=== PATIENT | female | born 1955 | race Caucasian/White ===

== ENCOUNTER → 2018-04-06 12:27 | Outpatient (CLI) | payer OTHER, SELFPAY | PROVIDERS: PCP Orthopaedic Surgery; Visit Provider Family Medicine | DX: Z12.31 Encounter for screening mammogram for malignant neoplasm of breast (principal); Z53.8 Procedure and treatment not carried out for other reasons ==

== ENCOUNTER → 2018-04-20 08:41 | Outpatient (CLI) | payer OTHER, SELFPAY ==
--- NOTE | 2018-04-20 | DI.US.S_ITS ---
ULTRASOUND OF LEFT BREAST: 04/20/2018 CLINICAL: Scaliness and discomfort left nipple. Per technologist, the patient describes a rash to the left nipple area that has been itchy, scaly, and lumpy without discharge. Patient states her nipple has occasionally turned a purple color. Comparison is made to exams dated: 04/20/2018 mammogram - [facility], 04/05/2017 mammogram, and 04/04/2016 mammogram - [facility]. Real-time and Doppler ultrasound of the left breast were performed. Alva scale images of the real-time examination were reviewed. Targeted ultrasound was performed in the region of the patient's reported focal symptoms in the left nipple and retroareolar region. No underlying breast mass or abnormality is identified. IMPRESSION: NEGATIVE Negative ultrasound evaluation of the left nipple and retroareolar region at site of the patient's reported focal symptoms. Recommend clinical follow-up for further evaluation and management of the patient's reported symptoms. A screening mammogram in one year is also recommended. These results and recommendations were discussed with the patient at the time of the exam by the steeping press operator. The patient was advised to monitor her breasts and to return for re-evaluation should anything grow or change. This exam was interpreted at Station ID: [id number]. Electronically Signed By: Casimiro Massey M.D. ecl/:04/20/2018 10:18:27 letter sent: Clinical Evaluation Ultrasound BI-RADS: 1 Negative
--- NOTE | 2018-04-20 | DI.MG.S_ITS ---
BILATERAL DIGITAL DIAGNOSTIC MAMMOGRAM 3D/2D: 04/20/2018 CLINICAL: Per technologist, the patient describes a rash to the left nipple area that has been itchy, scaly, and lumpy without discharge. Patient states her nipple has occasionally turned a purple color. Comparison is made to exams dated: 04/05/2017 mammogram and 04/04/2016 mammogram - [facility]. The tissue of both breasts is predominantly fatty. No significant masses, calcifications, or other findings are seen in either breast. No abnormality of the left nipple or retroareolar area on diagnostic mammography at the site of the patient's reported symptoms. IMPRESSION: INCOMPLETE: NEEDS ADDITIONAL IMAGING EVALUATION No abnormality of the left nipple or retroareolar area on diagnostic mammography at the site of the patient's reported symptoms. No convincing mammographic evidence of malignancy in either breast. Targeted diagnostic ultrasound recommended for further evaluation, which will be performed immediately following this exam. This exam was interpreted at Station ID: [id number]. NOTE: For mammograms, a report in lay terms will be sent to the patient. Approximately 15% of breast malignancies will not be visualized mammographically. In the management of a palpable breast mass, a negative mammogram must not discourage biopsy of a clinically suspicious lesion. Electronically Signed By: Casimiro Massey M.D. ecl/:04/20/2018 09:29:47 letter sent: Additional Imaging Needed ACR BI-RADS Category 0: Incomplete [id number]
== END ==
PROVIDERS: PCP Orthopaedic Surgery; Visit Provider Family Medicine
DX: R92.8 Other abnormal and inconclusive findings on diagnostic imaging of breast (principal); R21 Rash and other nonspecific skin eruption
CPT/HCPCS: 76642; 77066; G0279

== ENCOUNTER → 2020-04-24 10:24 | Outpatient (CLI) | payer OTHER, SELFPAY ==
--- NOTE | 2020-04-24 10:48 | DI.MG.S_ITS ---
Patient Name: HERNÁN ELLIS date: 1955 Sex: F Attending Physician: Abram Indications: Date: 04/24/2020 10:42 At the request of: YESSI ROBERT Procedure: MM screening mammo BI BILATERAL DIGITAL SCREENING MAMMOGRAM 3D/2D WITH CAD: 04/24/2020 CLINICAL: Routine screening. Family history of breast cancer. Comparison is made to exams dated: 04/20/2018 mammogram - [facility], 04/05/2017 mammogram, and 04/04/2016 mammogram - [facility]. There are scattered fibroglandular elements in both breasts. Current study was also evaluated with a Computer Aided Detection (CAD) system. No significant masses, calcifications, or other findings are seen in either breast. There has been no significant interval change. IMPRESSION: NEGATIVE There is no mammographic evidence of malignancy. A 1 year screening mammogram is recommended. This exam was interpreted at Station ID: [id number]. NOTE: For mammograms, a report in lay terms will be sent to the patient. Approximately 15% of breast malignancies will not be visualized mammographically. In the management of a palpable breast mass, a negative mammogram must not discourage biopsy of a clinically suspicious lesion. Electronically Signed By: Slick cunningham/diamante:04/24/2020 11:18:23 letter sent: Normal Exam ACR BI-RADS Category 1: Negative [id number]
== END ==
PROVIDERS: PCP Family Medicine; Referring Provider Family Medicine; Visit Provider Family Medicine
DX: Z12.31 Encounter for screening mammogram for malignant neoplasm of breast (principal); Z80.3 Family history of malignant neoplasm of breast
CPT/HCPCS: 77063; 77067

== ENCOUNTER → 2021-09-29 11:33 | Outpatient (CLI) | payer OTHER, SELFPAY ==
--- NOTE | 2021-09-29 | DI.US.S_ITS ---
PROCEDURE: US PERIPH VENOUS LOW EXTREM LT INDICATIONS: ACUTE DEEP VEIN THROMBOSIS LEFT LEG TECHNIQUE: Real-time imaging, as well as color and pulse Doppler interrogation, were performed of the lower extremity deep veins from the inguinal ligament to the popliteal fossa. COMPARISON: None. FINDINGS: The common femoral, femoral and popliteal veins are normally compressible, and free of intraluminal thrombus. Color and pulse Doppler demonstrate normal phasic intraluminal flow. There is normal augmentation response to distal compression maneuver. There is a focal fluid collection seen involving the medial aspect of the left knee that measures 2.6 x 2.6 x 3.3 cm. No abnormal vascularity can be seen. IMPRESSION: Negative for deep venous thrombosis. Focal nonvascular fluid collection seen along the medial aspect the left knee that measures up to 3.3 cm. Dictated by: Nir Palacios M.D. on 09/29/2021 at 11:52 Approved by: Nir Palacios M.D. on 09/29/2021 at 11:52
== END ==
PROVIDERS: PCP Family Medicine; Referring Provider Orthopaedic Surgery; Visit Provider Orthopaedic Surgery
DX: I82.442 Acute embolism and thrombosis of left tibial vein (principal)
CPT/HCPCS: 93971

== ENCOUNTER → 2021-10-27 15:45 | Outpatient (CLI) | payer OTHER, SELFPAY ==
--- NOTE | 2021-10-27 | DI.MRI.S_ITS ---
PROCEDURE: MR KNEE LT WO CON INDICATIONS: Tear of medial meniscus, current injury, left knee TECHNIQUE: Noncontrast sagittal PD fast spin echo and T2 fast spin echo with fat saturation, sagittal 3-D FLASH with fat saturation; coronal T1 spin echo and PD fast spin echo with fat saturation, and axial PD fast spin echo with fat saturation through the knee. COMPARISON: [facility], MR, MR KNEE LEFT WITHOUT CONTRAST, 07/08/2021, 9:00. FINDINGS: Image quality: Excellent. Menisci: Abnormal morphology of the posterior horn of the medial meniscus along the inferior articular surface, compatible with prior meniscectomy. There is horizontal tear of the free edge of the body of the lateral meniscus (series 11 image 21). The meniscal root ligaments appear intact. Cruciate ligaments: The anterior and posterior cruciate ligaments appear intact. Medial structures: The medial collateral ligament appears intact. The semimembranosus tendon insertions and meniscocapsular junction appear intact. Visualized portions of the pes anserinus tendons appear normal. No abnormal bursal fluid. Lateral structures: The lateral collateral ligament, long and short heads of the biceps femoris tendon appear intact. The popliteus tendon appears normal. Iliotibial band appears normal. Anterior structures: The quadriceps and patellar tendons appear intact. Patellar alignment is normal. No femoral trochlear dysplasia or ventral trochlear prominence. No edema in the infrapatellar fat pad. Bones and cartilage: No bone marrow contusions or fractures. There is moderate tricompartmental chondral malacia. Joint space: There is moderate sized knee joint effusion. Small Hartman's cyst. Normal appearing synovial plicae are incidentally noted. There is varicose veins in the left lower extremity. IMPRESSION: 1. Abnormal morphology of the posterior horn of the medial meniscus, compatible with prior meniscectomy. 2. Horizontal tear of the free edge of the body of the lateral meniscus. 3. Moderate knee joint effusion. 4. Tricompartmental chondral malacia. 5. Small Hartman's cyst. 6. Varicose veins in the left lower extremity. Dictated by: Milana Calero M.D. on 10/27/2021 at 17:25 Approved by: Milana Calero M.D. on 10/28/2021 at 12:02
== END ==
PROVIDERS: PCP Family Medicine; Referring Provider Orthopaedic Surgery; Visit Provider Orthopaedic Surgery
DX: S83.282A Other tear of lateral meniscus, current injury, left knee, initial encounter (principal); S83.242D Other tear of medial meniscus, current injury, left knee, subsequent encounter; M94.262 Chondromalacia, left knee; M25.462 Effusion, left knee; M71.22 Synovial cyst of popliteal space [Baker], left knee; I83.92 Asymptomatic varicose veins of left lower extremity
CPT/HCPCS: 73721

== ENCOUNTER → 2022-02-01 08:57 | Outpatient (CLI) | payer OTHER, SELFPAY ==
--- NOTE | 2022-02-01 09:01 | DI.NM.S_ITS ---
PROCEDURE: MA BONE SCAN WHOLE BODY RADIOPHARMACEUTICAL: 19.5 mCi Tc-99m MDP IV. INDICATIONS: Unilateral primary osteoarthritis, left knee TECHNIQUE: Delayed whole-body scintigrams were obtained approximately 3-4 hours after intravenous injection of radiotracer. Anterior and posterior views were acquired from vertex to feet. Additional left and right oblique views of the knees were obtained. COMPARISON: [facility], MA, BONE SCAN WHOLE BODY, 09/14/2015, 13:08. [facility], MR, MR KNEE LT WO CON, 10/27/2021, 16:20. [facility], CR, XR KNEE 4+ VIEWS LEFT, 12/01/2021, 8:14. FINDINGS: There is increased periarticular activity in knees bilaterally, left greater than right, compatible with degenerative/arthritic changes. Degenerative/arthritic changes are also seen in multiple other peripheral joints. No lesions are identified in skull, sternum, clavicles, scapulae, ribs, bony pelvis, and visualized shafts of the long bones. There are foci of increased uptake in cervical, thoracic and lumbar spine with distribution indistinguishable from degenerative disc and facet disease. IMPRESSION: 1. Foci of increased uptake in multiple peripheral joints compatible with degenerative/arthritic changes. Dictated by: Milana Calero M.D. on 02/01/2022 at 14:19 Approved by: Milana Calero M.D. on 02/01/2022 at 14:23
== END ==
PROVIDERS: PCP Family Medicine; Referring Provider Orthopaedic Surgery; Visit Provider Orthopaedic Surgery
DX: M17.12 Unilateral primary osteoarthritis, left knee (principal)
CPT/HCPCS: 78306; A9503

== ENCOUNTER → 2022-04-07 10:27 | Outpatient (CLI) | payer OTHER, SELFPAY ==
[2022-04-07 12:18] LABS: Add Manual Diff / Slide Review NO; Basophils Absolute Auto 0 /uL (0-100); Basophils Percent Auto 0.4 % (0-2); Eosinophils Absolute Auto 100 /uL (0-450); Eosinophils Percent Auto 2.3 % (2-4); Hematocrit 38.7 % (36-46); Hemoglobin 13.7 g/dL (12.0-16.0); Lymphocytes Absolute Auto 1500 /uL (1100-4500); Lymphocytes Percent Auto 25.3 % (25-40); Mean Corpuscular HGB Conc 35.5 % (30-36); Mean Corpuscular Hemoglobin 29.8 PG (26-34); Mean Corpuscular Volume 83.9 fL (80-100); Monocytes Absolute Auto 500 /uL (0-900); Monocytes Percent Auto 8.8 % (3-14); Neutrophils Absolute Auto 3800 /uL (1500-7000); Neutrophils Percent Auto 63.2 % (50-75); Platelet Count 195 X10^3/uL (150-400); Red Blood Cell Count 4.62 X10^6/uL (4.0-5.2); Red Cell Distribution Width 13.4 % (11.6-14.8)
[2022-04-07 12:33] LABS: Appearance Urine UA CLEAR; Bilirubin Urine UA NEGATIVE (NEGATIVE); Color Urine UA YELLOW; Glucose Urine UA NEGATIVE (Negative); Ketones Urine UA NEGATIVE (NEGATIVE); Leukocyte Esterase Urine UA NEGATIVE (NEGATIVE); Nitrite Urine UA NEGATIVE (Negative); Occult Blood Urine UA NEGATIVE (Negative); Protein Urine UA NEGATIVE (Negative); Specific Gravity Urine UA <=1.005 (1.000-1.035); Urobilinogen Urine UA 0.2 E.U./dL (0.2)
[2022-04-07 12:49] LABS: Bacteria Urine None Seen; Culture Indicated Urine Cult Not Indicated; RBC Urine None Seen (0-5/HPF); Urine Comments Microscopic Normal; WBC Urine None Seen (0-5/HPF)
[2022-04-07 12:51] LABS: BUN Creatinine Ratio 27.7 (6-22); Blood Urea Nitrogen 18 mg/dL (7-17); Calcium 9.4 mg/dL (8.4-10.2); Carbon Dioxide 31 mmol/L (22-32); Chloride 105 mmol/L (98-107); Estimated Glomerular Filt Rate > 60 mL/min (>60); Glucose 93 mg/dL (80-110); HEMOLYSIS < 15 (0-50); Sodium 142 mmol/L (137-145)
== END ==
PROVIDERS: PCP Family Medicine; Referring Provider Orthopaedic Surgery; Visit Provider Orthopaedic Surgery
DX: Z01.818 Encounter for other preprocedural examination (principal); Z01.812 Encounter for preprocedural laboratory examination; R73.9 Hyperglycemia, unspecified; N39.0 Urinary tract infection, site not specified
CPT/HCPCS: 36415; 80048; 81001; 83036; 85025; 93005; 93010

== ENCOUNTER → 2022-04-18 09:51 | Outpatient (CLI) | payer OTHER, SELFPAY ==
[2022-04-18 11:07] LABS: COVID19 -Nasal RAPID Negative (Negative)
== END ==
PROVIDERS: PCP Family Medicine; Referring Provider Orthopaedic Surgery; Visit Provider Orthopaedic Surgery
DX: Z20.822 Contact with and (suspected) exposure to COVID-19 (principal)
CPT/HCPCS: 87635; C9803

== ENCOUNTER 2022-04-19 12:01 | Day surgery (SDC) | payer OTHER, SELFPAY ==
[2022-04-12 08:59] VITALS: BMI 28.0
[2022-04-19] VITALS (18 sets, daily range): BP systolic 126–150; BP diastolic 54–67; PULSE 56–79; RESP 11–18; TEMP 36–36.9; O2SAT 92–100; BMI 28.0
--- NOTE | 2022-04-19 09:17 | DI.RAD.S_ITS ---
PROCEDURE: XR KNEE LT 1TO2V INDICATIONS: TKA TECHNIQUE: 2 view(s) of the knee acquired. COMPARISON: [facility] [place], CR, XR KNEE 4+ VIEWS LEFT, 12/01/2021, 8:14. FINDINGS: Bones: Patient is status post knee joint arthroplasty. Hardware components are in expected positions. Visualized bony structures are intact. Soft tissues: Overlying postoperative changes are noted. IMPRESSION: Expected immediate postoperative appearance of left TKA. Dictated by: David Wade Darci Interpreted: Arnel Fernandez MD on 04/19/2022 at 17:05 Transcribed by: ОЛЕГ on 04/19/2022 at 17:05 Approved by: Arnel Fernandez M.D. on 04/19/2022 at 21:03
[2022-04-19] MEDS: VANCOMYCIN 1,000 MG/200 ML PIGGYBACK 200 MG IV (12:54)
[2022-04-19] MEDS: CELECOXIB 200 MG CAPSULE PO (12:55)
[2022-04-19] MEDS: ACETAMINOPHEN 325 MG TABLET 975 MG PO (12:55)
--- NOTE | 2022-04-19 12:56 | SUR.PREOP ---
left knee shaven prior to OR. Wiped with Clorhexidine cloths
--- NOTE | 2022-04-19 13:54 | PM.PREOP ---
Pre-operative Note COVID-19 COVID-19 status: Negative Interval Note History & Physical reviewed/Exam performed by Physician: Yes Changes to H&P: No
--- NOTE | 2022-04-19 14:15 | SUR.PREOP ---
Block start time [1355] . Monitoring initiated and maintained throughout procedure. Oxygen and medications given per anesthesiologist instructions. Patient remained stable throughout procedure, no adverse reactions noted. Block end time [1403].Procedure performed under conscious sedation. Pt placed on 3LNC, alert, responsive. Tolerated well. 2mg IV Midazolam and 50mcg IV Fentanyl given in total. Bp 144/66m HR 77 sats 100% at start of procedure. Remained on tele wtih NSR throughout entirety. Final BP 121/1, HR 62, sats 100% RR 16 when procedure completed at 1403. Tele strips printed in chart.
[2022-04-19] MEDS: TRANEXAMIC ACID 1,000 MG VIAL 2000 MG INJ ×2 (14:25→16:03)
[2022-04-19] MEDS: LACTATED RINGERS 1,000 ML 42 ML IV ×2 (14:37→16:52)
--- NOTE | 2022-04-19 14:40 | SUR.OPER ---
Supine on padded OR bed. Pillow under head, arms secured on padded armboards <90 degree abduction. Safety belt across torso. Non-operative leg secured with tape over blanket over lower leg. Operative leg secured in DeMayo/Joe/Nathe positioner. Foam padded brace at thigh of operative leg.
[2022-04-19] MEDS: BUPIVACAINE LIPOSOME 266 MG/20 ML VIAL INJ (14:47)
[2022-04-19] MEDS: BUPIVACAINE 0.25% (PF) 60 ML, EPINEPHrine 0.3 MG INJ (14:48)
[2022-04-19] MEDS: fentaNYL 100 MCG/2 ML INJ IV ×2 (16:41→17:18)
[2022-04-19] MEDS: OXYCODONE IR 5 MG TABLET PO (16:41)
[2022-04-19] MEDS: HYDROMORPHONE 2 MG INJ IV ×3 (16:42→17:18)
[2022-04-19] MEDS: ONDANSETRON 4 MG/2 ML INJ IV ×2 (16:43→19:03)
--- NOTE | 2022-04-19 16:44 | PM.OP.1 ---
Operative Date/Time/Diagnoses Date of procedure: 04/19/22 Time of procedure: 14:30 Pre-op diagnosis: Left knee osteoarthritis failed extensive conservative treatment and previous arthroscopy Post-op diagnosis: same Procedure & Clinicians Procedure: Left total knee arthroplasty Same procedure as scheduled: Yes Indications: The patient has had progressively worsening left knee pain with radiographic changes consistent with arthritis. Non-operative management has failed and the patient has requested total knee replacement. The risks, benefits and alternatives to surgery were discussed with the patient prior to proceeding. Risks discussed included, but were not limited to, failure to relieve pain, stiffness, infection, nerve damage, deep venous thrombosis, pulmonary embolism, stroke, coma, heart attack, permanent paralysis and , as well as the potential need for eventual revision of the prosthetic. Surgeon: Sudha Yoon [employer] Consultant: Colette Reyes Anesthesia Type: General and Spinal Operative Notes Findings: Left knee osteoarthritis with wear especially in the lateral compartment on the lateral femoral condyle Closure Type: primary Specimen(s): none sent Prosthetic devices, grafts, tissues, transplants, or devices: Yoon and nephew size 5 femur, size 3 tibia, +10 poly, 35 x 7.5 mm patella Estimated Blood Loss (mL): 250 Tourniquet time (min): 78 Procedure in detail: The patient was seen in the pre-operative area, where the patient identified the right knee as the operative site and this was marked with my initials. The patient received pre-operative antibiotics, and was taken to the operating room and placed on the operative table in the supine position. After satisfactory anesthesia, a director multimedia out was performed. The left leg was encircled with a tourniquet about the proximal thigh, and the leg was prepared from the toes to the tourniquet with ChloroPrep in the usual fashion and draped through sterile drapes. The leg was elevated and exsanguinated with Eschmark bandage and the tourniquet inflated to [250] mmHg pressure. The knee was approached through an approximately 18 cm incision centered over the patella and carried into the knee through a medial parapatellar arthrotomy. A portion of the medial and lateral meniscus was resected. Soft tissue was carefully mobilized around the patella the patella was measured with a caliper. Bone was resected from the patella and the patellar height was reconstituted with up an appropriate sized patellar component. A cover was then placed on the patella. A small amount of additional medial and lateral meniscus was resected. The distal femur was cut at 5?. A [+2] cut was used. It looked like an appropriate distal femoral cut and the cut was made without difficulty. An extramedullary guide was used for the tibial cut. 10 mm was resected off the least affected side.The tibia was prepared. The rotation was assessed. The patient was placed in extension residual medial and lateral meniscus as well as any residual bone was carefully resected. [No] additional tibia was resected. Hemostasis was achieved especially posteriorly. Additional local was injected into the posterior capsule. The extension gap was assessed and additional releases for gap balancing were performed as necessary. It was checked with the gap cement or concrete finishing supervisor. The femoral component was trial was placed and the notch was finished. The rotation was assessed and the appropriate size femoral guide was placed on the distal femur and finishing cuts were made. There was no evidence of notching. The anterior, posterior and chamfer cuts were then made. The posterior osteophytes and soft tissues were then removed. The posterior capsule was injected with part of a mixture of 60 ml 0.25% Marcaine mixed with 20 ml Exparel for post operative pain control. The remainder of this mixture was injected into the capsule and subcutaneous tissues during cement curing. The tibial and femoral components were then placed and the knee placed through a range of motion. Range of motion was [0-130], with good stability throughout the range. The trials were then removed, and the tibia was finished. The bone was prepared with pulsatile lavage, and dried with a sponge. Cement was applied and the final prosthetics placed. Excess cement was removed during and after cement curing. A brief Betadine soak was performed. After confirming there was no extruded cement posteriorly, the final tibial insert was placed. The knee was copiously irrigated and the tourniquet deflated. Hemostasis was obtained with the Bovie cautery. The capsule was closed with interrupted nonabsorbable suture. The subcutaneous layer was closed with barbed sutures, and the skin with a running 3-0 V-Lock suture and Surgical glue. An Aquacel Ag dressing was applied and the patient was taken to recovery having tolerated the procedure well. Complications: none Post-operative Condition: stable Disposition: Acute Care Plan for aftercare: The patient will be maintained on a standard total knee replacement protocol with weight bearing as tolerated. The patient will receive aspirin and sequential compression devices for DVT prophylaxis. The patient will be discharged home when safe for the home environment.
--- NOTE | 2022-04-19 17:23 | SUR.PHASEI ---
Patient ready to be transferred to inpatient unit but room not clean at this time. Re-medicated for pain. VSS.
[2022-04-19] MEDS: LACTATED RINGERS 1,000 ML 100 ML IV (18:54)
[2022-04-19] MEDS: SODIUM CHLORIDE 0.9% FLUSH 10 ML IV (19:03)
--- NOTE | 2022-04-19 19:33 | PC.NURSE ---
Patient brought up from PACU to room 225 at approx 1830. Patient sleepy but arouses and answering questions quietly. VSS, on 2L NC at 96% at rest. Left knee wrapped in RAY wrap, CDI. Patient oriented to room and call light. Patient felt urge to urinate but then had nausea with episode of small amount of unmeasured emesis. Float RN in to medicate patient for nausea and assist with use of bedpan.
[2022-04-19] MEDS: ASPIRIN EC 81 MG TABLET PO (20:59)
[2022-04-19] MEDS: IBUPROFEN 400 MG TABLET PO (20:59)
[2022-04-19] MEDS: DOCUSATE 100 MG CAPSULE PO (20:59)
[2022-04-19] MEDS: CEFAZOLIN 2 GM/100 ML PREMIX 100 ML IV (21:47)
[2022-04-19] MEDS: OXYCODONE IR 10 MG TABLET PO (23:02)
[2022-04-20] MEDS: IBUPROFEN 400 MG TABLET PO ×6 (00:24→21:18)
[2022-04-20] MEDS: ACETAMINOPHEN 325 MG TABLET 650 MG PO ×4 (00:24→18:22)
--- NOTE | 2022-04-20 00:54 | PC.NURSE ---
Patient is alert and oriented but drowsy having returned from surgery at 1830. Breath sounds CTA with oxygen at 2L/min per NC at shift change and sat in high 90's; oxygen has since been decreased to RA and sats staying > 92%. HRR. Was nauseated upon return from surgery but now denies further nausea. BT present and states she has passed some flatus. Voiding per bedpan and denies dysuria. Is able to move self minimally in bed but able to relieve pressure on back/coccyx. CMS is intact but is unable to move left leg as yet. Aquacel dressing to left knee covered with loreta bandage is CDI. Initially denied pain but at 2300 requested and was medicated with oxycodone as well as scheduled Tylenol and Ibuprofen; ice packs applied. Fall risk score is moderate and bed alarm is activated.
[2022-04-20] MEDS: OXYCODONE IR 10 MG TABLET PO (03:02)
[2022-04-20 03:07] VITALS: BP 142/61; PULSE 71; RESP 18; TEMP 36.6; O2SAT 98
[2022-04-20] MEDS: LACTATED RINGERS 1,000 ML 100 ML IV (04:41)
[2022-04-20 04:50] LABS: Hematocrit 36.5 % (36-46)
[2022-04-20] MEDS: CEFAZOLIN 2 GM/100 ML PREMIX 100 ML IV (06:03)
[2022-04-20] MEDS: ONDANSETRON 4 MG/2 ML INJ IV (07:23)
--- NOTE | 2022-04-20 07:33 | PM.PNPO.1 ---
Subjective Subjective Date Patient Seen: 04/20/22 Time Patient Seen: 07:33 Interval history: Patient states her pain is been [id number]. Patient has been very nauseous and has thrown up several times this morning. Currently receiving more so friend to control the nausea. She has not been up out of bed yet. Otherwise without complaints. Exam Vital Signs (past 8 hours): - 04/19/22 23:36 04/20/22 03:07 Temperature 97.9 F 97.8 F Pulse Rate 68 71 Respiratory Rate 18 18 Blood Pressure 131/54 L 142/61 H Pulse Oximetry 96 98 Oxygen Flow Rate 1 0 Oxygen Delivery Method Nasal Cannula Oxygen Flow Rate 0 Narrative Exam Narrative: 66-year-old female appears uncomfortable in no acute distress. Dressing is Clean, dry, intact.. Motor functions intact bilateral lower extremities. Sensation grossly intact to light touch bilateral lower extremities. Const General: cooperative Objective Labs Result Diagrams: 04/20/22 04:27 Labs: Laboratory Results - last 24 hr 04/20/22 04:27 Hgb 13.0 Hct 36.5 PFSH Medical History Fibromyalgia History of Mohs micrographic surgery for skin cancer HLD (hyperlipidemia) HTN (hypertension) Surgical History History of hysterectomy Hx of arthroscopy of left knee (08/16/21) Hx of bilateral cataract extraction Hx of hernia repair Social History household members: spouse Smoking Status: Never smoker alcohol intake: former Assessment & Plan Post-op Postoperative Procedures: Procedures Operation Date: 04/19/22 14:15 Actual Procedure Side Surgeon p Total Knee Arthroplasty Left Sudha Yoon MD Postoperative day: 1 Postoperative status narrative: Status post left total knee arthroplasty. Postoperative plan narrative: Mobilize with physical therapy. Weightbearing as tolerated. Patient will be maintained on a standard total knee replacement protocol. If nausea vomiting improve may discharge home today after physical therapy.
[2022-04-20] MEDS: HYDROMORPHONE 0.5 MG INJ 0.2 MG IV (08:11)
[2022-04-20 08:30] VITALS: BP 127/60; PULSE 75; RESP 16; TEMP 37; O2SAT 93
--- NOTE | 2022-04-20 10:27 | PT.IIE ---
Addendum entered and electronically signed by Margarette Brito PT 04/20/22 15:17: This is to certify that I have reviewed and is in direct supervision with pt's care. Original Note: Current Diagnoses Unilateral primary osteoarthritis, left knee (04/19/22) Surgery Performed Operation Date: 04/19/22 14:15 Actual Procedures p Total Knee Arthroplasty(Left) - Sudha Yoon MD Surgical History (Last Reviewed 04/20/22 @ 07:35 by Wolf Vilchis PA-C) History of hysterectomy Hx of arthroscopy of left knee (08/16/21) Hx of bilateral cataract extraction Hx of hernia repair Medical History (Last Reviewed 04/20/22 @ 07:35 by Wolf Vilchis PA-C) Fibromyalgia History of Mohs micrographic surgery for skin cancer HLD (hyperlipidemia) HTN (hypertension) Physical Therapy Inpatient Evaluation/Re-Eval M1 PT/OT-IP Prior Functional Status Start: 04/20/22 13:51 Freq: NEEDED Status: Active Protocol: Document 04/20/22 09:46 (Rec: 04/20/22 15:12 [id number]) Medical Review Prior Functional Status Medical History Reviewed Yes Communication able to make needs known. Mobility and Gait pt stated that she is independent with all mobilities and ambulation without use of an AD. Social History Household Members spouse Living Arrangements House Number of Floors (Floors) Two Floors Number of Stairs To Enter/Railing? 8 stairs 2 rails (can't hold at same time) to enter house, 8 stairs 2 rails (can hold same time) to second floor where patient will be staying. [address] to front of house. Home Environment Standard Height Toilet,Walk in Shower Home Equipment Quad Cane,Hand Held Shower Additional Social History Comment pt states that will be able to assist at home 20/03 as needed. pt states she has a pickle maker walker and a quad cane. M2 PT-IP Current Condition Start: 04/20/22 13:51 Freq: NEEDED Status: Active Protocol: Document 04/20/22 09:46 (Rec: 04/20/22 15:12 [id number]) Physical Therapy Current Condition Current Condition Evaluation Date 04/20/22 Treatment Diagnosis L TKA; difficulty walking Onset Date 04/19/2022 M3 PT-IP Subjective Start: 04/20/22 13:51 Freq: NEEDED Status: Active Protocol: Document 04/20/22 09:46 (Rec: 04/20/22 15:12 [id number]) Subjective Physical Therapy Visit Type Type Initial Evaluation Visit Start Time 10:27 Visit Stop Time 11:12 Total Visit Minutes 45 Number of CORPORATE ASSOCIATE ATTORNEY Visits 0 Physical Therapy Visit Comments Patient Comments pt agreeable to do PT. M4 PT-IP Mobility and Gait Start: 04/20/22 13:51 Freq: NEEDED Status: Active Protocol: Document 04/20/22 09:46 (Rec: 04/20/22 15:12 [id number]) PT-Bed Mobility Assessment Supine to Sit Supine to Sit Maximum Assistance,1 Person Assistance PT-Transfer Assessment Sit to and From Stand Sit to and from Stand Maximum Assistance,1 Person Assistance,2 Person Assistance ,Use of Upper Extremities Equipment Transfer Assistive Device Gait Belt,Front Wheeled Walker Orthotic/Prosthetic Devices or Brace: No Transfers Transfer Destination Chair Transfer Technique Stand Step Pivot Transfer Ability Level of Assist Maximum Assistance,2 Person Assistance,Use of Upper Extremities Comments Mobility Comments pt BP in supine: 127/49. pt reports lightheadiness and nausea, pain 8/10. pt completed supine to sit max A and max cues. pt's attempted to assist but instructed not to. able to sit on EOB SBA to CGA. pt reports increased lightheadedness, BP in sitting : 142/56. pt agreed to sit on chair. completed sit to stand 2 attempts, max A 1-2 and max cues for step pivot transfer using FWW to the chair. cued patient to weightbear through both legs, weighshift, and utilize arms to support LE's. pt in pain. positioned pt on the chair, call light and table placed within reach. Informed pt that PT will be back for afternoon session. Gait Assessment Comments Gait Comments unable to walk due to pain. PT-Balance Assessment Sitting Balance and Reactions Static Sitting Balance Ability Good Dynamic Sitting Balance Ability Good Standing Balance and Reactions Static Standing Balance Ability Fair Dynamic Standing Balance Ability Poor Device Used FWW M5 PT-IP Objective Assessments Start: 04/20/22 13:51 Freq: NEEDED Status: Active Protocol: Document 04/20/22 09:46 (Rec: 04/20/22 15:12 [id number]) Orientation Orientation/Cognition Level of Alertness Alert Orientation Name,Place,Situation Language Function Ability No Deficits Noted Safety Awareness Decreased Safety Awareness Memory Description No Deficits Noted Gross Range of Motion Lower Extremity ROM Assessment Left Impaired Strength Lower Extremity Strength Assessment Left Impaired Hip 3+/5 Knee 3+/5 Ankle 4/5 Coordination Assessment Gross Coordination Gross Coordination WNL Muscle Tone Muscle Tone WNL Yes M6 PT-IP Treatment Start: 04/20/22 13:51 Freq: NEEDED Status: Active Protocol: Document 04/20/22 09:46 (Rec: 04/20/22 15:12 [id number]) Physical Therapy Treatment Exercises Exercises Seated Knee Flexion/Extension Education Education Provided Weight Bearing Status,Post-Op Packet,Safety M7 PT-IP Assessment and Plan Start: 04/20/22 13:51 Freq: NEEDED Status: Active Protocol: Document 04/20/22 09:46 (Rec: 04/20/22 15:12 [id number]) PT Summary Assessment and Plan Potential Rehabilitation Potential Good Status of Condition at Evaluation Evolving Summary Impairments Pain,ROM,Strength,Balance, Coordination,Bed Mobility, Transfers,Gait,Activity Tolerance Progress Towards Goals Slow Progress due to Pain,Slow Progress due to Activity Tolerance Assessment Summary pt requiring max A 1-2 and max cues with all mobilites and tranfers, and is unable to ambulate at this time. discussed d/c plan and pt's mobility and assistance level with pt and pt's . pt requiring 24/7 assist and SNF rehab at this time. lightheadiness, nausea, and pain affecting pt's mobility level, will continue to assess progress. Pt reports she has OP PT scheduled. Goals Bed Mobility Goal Independent Transfer Goal Independent,Front Wheeled Walker Gait Goal Independent,Front Wheel Walker Gait Distance 200 Other Goals pt will be able to ascend and descend 8+8 steps with one rail/ or with quad cane independently. Days to Meet Goals 5 Frequency of Treatment Frequency Of Treatment Twice a Day Treatment Plan Physical Therapy Treatment Plan Bed Mobility Training,Transfer Training,Gait Training, Therapeutic Exercise,Balance Retraining,Post Op Education, Discharge Planning,Hot or Cold Pack,Neuromuscular Re-ed, Coordination Retraining,Manual Therapy Weight Bearing Status Weight Bearing Status Weight Bear as Tolerated Allowed Weight Bearing Amount (enter % WBAT LLE or #) (%) Recommendations To Nursing Amount of Assist Needed 2 Person Assist Discharge Recommendations PT Discharge Recommendations Home with / Assist Available,Home Health,SNF Rehab Equipment Needed for Home Before FWW Discharge Transportation Needs at Discharge Private Vehicle,Wheelchair/ Cabulance
[2022-04-20] MEDS: ASPIRIN EC 81 MG TABLET PO ×2 (10:45→21:18)
[2022-04-20] MEDS: METOCLOPRAMIDE 10 MG/2 ML INJ 5 MG IV (11:27)
[2022-04-20 11:48] VITALS: BP 142/56; PULSE 71; RESP 16; TEMP 36.7; O2SAT 99
--- NOTE | 2022-04-20 12:00 | CM.DANOTE ---
DCP Assessment: Payor: Michael White PCP: Christa Valverde MD Pt is a 66 y.o. F who presented to the hospital for a scheduled left knee surgery on 04/19/22. Pt tolerated surgery with no complications. Pt admitted to the floor for further evaluation and management of surgical procedure. DCP met with pt this morning to discuss discharge needs. Pt sitting up in chair and had just finished session with PT. Pt spouse, Vinicius, at the bedside. DCP introduced herself and role. Pt states that she lives in a split level house in [place] with her spouse. Pt states that she is fairly independent at baseline and declines using DME's. Spouse states that they do have a walker with wheels on the way. Pt states that she still drives POV. Pt states that she has outpatient PT scheduled on 04/26 at [facility] in [place]. Pt spouse is supportive and will be able to drive her home when discharged. Pt denies home health in the past. No needs required at this time. Pt denies resources. Whiteboard updated and instructed to call if any questions. P: Once pt is medically stable for discharge, pt to discharge home via spouse POV. Hillary Hu RN/AMADEO Discharge Planning/Care Management CM Discharge Assessment Start: 04/20/22 11:44 Freq: Status: Active Protocol: Document 04/20/22 11:44 LORE (Rec: 04/20/22 11:45 LORE [id number]) Discharge Planning Assessment Assigned Sales Solutions Associate Hillary Hu RN/AMADEO Advance Directives? No History Provided By Patient Prior Living Arrangements House Household Members spouse Type of transporation used prior to Drives own vehicle admit Independent with ADL's Yes Is patient alert and oriented? Yes Caregiver for Another No DME Already Rented / Owned FWW / Walker Discharge Plan Home Community Services Physical Therapy Transportation Arrangement Outpatient @ [facility] on 04/26. Referrals Initiated None needed Additional Comment at this time Whiteboard Updated in Patient Room with Yes name and ext. # of Sales Solutions Associate Comment Instructed to call Review Status In Process Please Provide Date Initial DC 04/20/22 Assessment Was Performed Next Review Type Continued Stay Review Pre-Anesthesia Assessment Start: 04/12/22 08:59 Freq: Status: Complete Protocol: Document 04/12/22 08:59 CAB (Rec: 04/12/22 09:19 CAB [id number]) Pre-Anesthesia Assessment Preferred Name Yoly Patient Information Reviewed Via Phone Assessment Assessment Completed With Patient Diagnostic Results BMP/CMP,CBC,EKG,Urinalysis Comment Labs/ECG @ 04/07/22, COVID screen @ 04/18/22 Primary Care Provider Christa Valverde Seen Specialist in Last 12 Months Yes Specialist Seen Orthopedist Primary Language Irish Heat Treater Head Required No Height 175.26 cm Weight 86.183 kg Body Mass Index (BMI) 28.0 Hearing Ability Normal Visual Assist Magnifying Glass Dentition Type Teeth, Natural Present Barriers to Learning None Hx Anesthesia Reactions No Hx Family Anesthesia Reaction No Hx Malignant Hyperthermia No Hx Blood Transfusions No Anesthesia Review Requested No alcohol intake former Smoking Status Never smoker Substance Use Type does not use Pain Present Pain Reported Musculoskeletal Symptoms Abnormal Gait,Difficulty Walking,Joint Pain,Muscle Weakness History of Falling (Recent or History of No ) Patient is completely paralyzed or No completely immobile Mental Status Oriented to own ability Is patient on oxygen? No Does patient have STRINGER/SOB No Hx Sleep Apnea No Currently Taking a Beta Murray No Can You Climb a Flight of Stairs Without Yes SOB Hx Chest Pain No Hx SOB No Hx Syncope or Dizziness No Anti-Coagulant Therapy No Has a Supervisor Paper Coating No Cardiac Testing No Hx Pacemaker/ICD No Pacemaker Rep Required? No Diet Type At Home Regular dysphagia No Urinary Catheter Present No Hx Urinary Self Catheterization No Diabetes No HgbA1C 5.0 Date 04/07/22 Patient No Lactating No Hx Drug Resistant Organism No Presence of External or Internal Medical Yes: Bilat IOLs Devices Have you had any close contact with No someone diagnosed with COVID-19? Received a COVID vaccine? Yes Received all doses? No Marital Status Lives With spouse Prior Living Arrangements House Number of Floors (Floors) Two Floors Support System Spouse Does the Patient Have Assistance After Yes Surgery Patient Discharge Plan Description Return Home Comment Pt advised overnight length of stay per surgeon Feels Safe in Current Environment Yes Been Physically Hurt or Threatened By a No Person in Current Environment Do you have thoughts of harming yourself None or others? Are you currently considering suicide? No Do you have a plan to hurt yourself or No Plan others? Do You Have Any Spiritual Beliefs That No May Affect Your HC Choices? Do You Have Any Cultural Practices That No May Affect Your HC Choices? Comment Rastafari Who Can We Speak to About Patient's Care Family, friends Identifying Code for Release of Patient Declines to issue Information Health Care Proxy/Next of Kin Vinicius () Health Care Proxy Emergency Contact Name Vinicius () Emergency Contact Advance Directives? No Power of Timber Spotter No PAC Instructions Do not shave/clip surgical site,Durable medical equipment ,Medications to take/avoid, Nasal antibiotic,No ETOH/ petroleum product on skin DOS, NPO,Post-op transportation,Pre -surgical wash,Sturdy shoes/ comfortable clothes,Do not bring valuables and remove jewelry
--- NOTE | 2022-04-20 14:51 | PT.IPTN ---
Current Diagnoses Unilateral primary osteoarthritis, left knee (04/19/22) Surgery Performed Operation Date: 04/19/22 14:15 Actual Procedures p Total Knee Arthroplasty(Left) - Sudha Yoon MD Physical Therapy Treatment Note M2 PT-IP Current Condition Start: 04/20/22 13:51 Freq: NEEDED Status: Active Protocol: Document 04/20/22 09:46 BH (Rec: 04/20/22 15:12 BH [id number]) Physical Therapy Current Condition Current Condition Evaluation Date 04/20/22 Treatment Diagnosis L TKA; difficulty walking Onset Date 04/19/2022 M3 PT-IP Subjective Start: 04/20/22 13:51 Freq: NEEDED Status: Active Protocol: Document 04/20/22 14:34 KS (Rec: 04/20/22 15:28 KS [id number]) Subjective Physical Therapy Visit Type Type Treatment Note Visit Start Time 14:34 Visit Stop Time 14:51 Total Visit Minutes 17 Notes Pts present during treatment. Number of JUNIOR BUSINESS ANALYST Visits 1 Physical Therapy Visit Comments Patient Comments Pt needs encouragement to participate. M4 PT-IP Mobility and Gait Start: 04/20/22 13:51 Freq: NEEDED Status: Active Protocol: Document 04/20/22 14:34 KS (Rec: 04/20/22 15:28 KS [id number]) PT-Bed Mobility Assessment Supine to Sit Supine to Sit Moderate Assistance,1 Person Assistance,Head of Bed Elevated,Bedrails Sit to Supine Sit to Supine Moderate Assistance,1 Person Assistance,Head of Bed Elevated PT-Transfer Assessment Sit to and From Stand Sit to and from Stand Maximum Assistance,1 Person Assistance,Use of Upper Extremities Equipment Transfer Assistive Device Gait Belt,Front Wheeled Walker Orthotic/Prosthetic Devices or Brace: No Transfers Transfer Destination Bed Transfer Technique Pt ambulated w/ FWW Transfer Ability Level of Assist Maximum Assistance,1 Person Assistance,Use of Upper Extremities Comments Mobility Comments Pt in bed upon arrival, initially not wanting to get out of bed due to pain following recent ambulation to bathroom but then agreeable after encouragement. Pt required Mod A for sup<> sitting EOB. Pts then provided Max A for pt sit<> stand w/ FWW. Pt then ambulated ~25 ft w/ FWW w/ c/o increased pain. She was unable to tolerate further activity and returned to bed, pts provided Mod A for LE guidance back into bed. Pt left in bed w/ ice applied and all needs in reach. Gait Assessment Gait Gait Assistance Required: Contact Guard Assist,1 Person Assist Distance (Feet) 25 Able to Maintain Weight Bearing Status Yes During Gait Assistive Devices Assistive Device Gait Belt,Front Wheeled Walker Orthotic/Prosthetic Devices or Brace: No Gait Deviations General Gait Pattern Antalgic,Decreased Stride Length,Decreased Feet Clearance,Step-to Gait Factors Limiting Gait Function Factors Limiting Gait Function Decreased Activity Tolerance, Decreased Strength, Incoordination,Limited Range of Motion,Pain,Poor Balance, Poor Safety Awareness Comments Gait Comments Pt abl to ambulate ~25 ft w/ FWW but c/o very high level of pain. She was not able to fully extend LLE or perform full WB of LLE. Stair Climbing Assessment Comments Stair Climbing Comments Did not assess - pt states she has 16 steps to enter home. PT-Balance Assessment Sitting Balance and Reactions Static Sitting Balance Ability Good Dynamic Sitting Balance Ability Good Standing Balance and Reactions Static Standing Balance Ability Fair Dynamic Standing Balance Ability Fair Device Used FWW M5 PT-IP Objective Assessments Start: 04/20/22 13:51 Freq: NEEDED Status: Active Protocol: Document 04/20/22 09:46 BH (Rec: 04/20/22 15:12 [id number]) Orientation Orientation/Cognition Level of Alertness Alert Orientation Name,Place,Situation Language Function Ability No Deficits Noted Safety Awareness Decreased Safety Awareness Memory Description No Deficits Noted Gross Range of Motion Lower Extremity ROM Assessment Left Impaired Strength Lower Extremity Strength Assessment Left Impaired Hip 3+/5 Knee 3+/5 Ankle 4/5 Coordination Assessment Gross Coordination Gross Coordination WNL Muscle Tone Muscle Tone WNL Yes M6 PT-IP Treatment Start: 04/20/22 13:51 Freq: NEEDED Status: Active Protocol: Document 04/20/22 14:34 KS (Rec: 04/20/22 15:28 KS [id number]) Physical Therapy Treatment Education Education Provided Weight Bearing Status,Post-Op Packet,Safety Other Treatments Other Treatment Performed Initiated caregiver training w / pts M7 PT-IP Assessment and Plan Start: 04/20/22 13:51 Freq: NEEDED Status: Active Protocol: Document 04/20/22 14:34 KS (Rec: 04/20/22 15:28 KS [id number]) PT Summary Assessment and Plan Potential Rehabilitation Potential Good Summary Impairments Pain,ROM,Strength,Balance, Coordination,Bed Mobility, Transfers,Gait,Activity Tolerance Progress Towards Goals Slow Progress due to Pain,Slow Progress due to Activity Tolerance Assessment Summary Pt continues to be limited in mobility due to low activity tolerance and high level of pain. Her main barrier to going home is the 16 steps to enter she must complete. At this time, pt requires Max A for sit<>stand and can only tolerated minimal ambulation w / FWW and is unable to fully weight bear on LLE. At this time, she will require SNF to improve. Will continue to assess pts progress w/ mobility. Goals Bed Mobility Goal Independent Transfer Goal Independent,Front Wheeled Walker Gait Goal Independent,Front Wheel Walker Gait Distance 200 Other Goals pt will be able to ascend and descend 8+8 steps with one rail/ or with quad cane independently. Days to Meet Goals 5 Frequency of Treatment Frequency Of Treatment Twice a Day Treatment Plan Physical Therapy Treatment Plan Bed Mobility Training,Transfer Training,Gait Training, Therapeutic Exercise,Balance Retraining,Post Op Education, Discharge Planning,Hot or Cold Pack,Neuromuscular Re-ed, Coordination Retraining,Manual Therapy Weight Bearing Status Weight Bearing Status Weight Bear as Tolerated Allowed Weight Bearing Amount (enter % WBAT LLE or #) (%) Discharge Recommendations PT Discharge Recommendations Home with 20/03 Assist Available,Home Health,SNF Rehab Equipment Needed for Home Before FWW Discharge Transportation Needs at Discharge Private Vehicle,Wheelchair/ Cabulance
[2022-04-20 16:00] VITALS: BP 140/53; PULSE 73; RESP 16; TEMP 37.2; O2SAT 96
[2022-04-20] MEDS: DOCUSATE 100 MG CAPSULE PO (21:18)
[2022-04-20] MEDS: SODIUM CHLORIDE 0.9% FLUSH 10 ML IV (21:20)
[2022-04-20 22:00] VITALS: BP 144/78; PULSE 76; RESP 16; TEMP 36.9; O2SAT 98
[2022-04-21] MEDS: ACETAMINOPHEN 325 MG TABLET 650 MG PO ×5 (00:30→23:28)
[2022-04-21] MEDS: IBUPROFEN 400 MG TABLET PO ×6 (00:30→21:33)
[2022-04-21 04:54] VITALS: BP 150/71; PULSE 73; RESP 16; TEMP 36.7; O2SAT 95
[2022-04-21 08:12] VITALS: BP 134/51; PULSE 77; RESP 16; TEMP 37; O2SAT 96
[2022-04-21] MEDS: ASPIRIN EC 81 MG TABLET PO ×2 (09:04→21:34)
[2022-04-21] MEDS: DOCUSATE 100 MG CAPSULE PO (09:04)
[2022-04-21] MEDS: ATORVASTATIN 20 MG TABLET PO (09:04)
[2022-04-21] MEDS: SODIUM CHLORIDE 0.9% FLUSH 10 ML IV ×2 (09:05→21:36)
[2022-04-21] MEDS: AMLODIPINE 5 MG TABLET PO (09:05)
[2022-04-21] MEDS: ESTROGENS, CONJUGATED 0.625 MG TABLET PO (09:06)
--- NOTE | 2022-04-21 09:39 | PM.PNPO.1 ---
Subjective Subjective Date Patient Seen: 04/21/22 Time Patient Seen: 09:39 Interval history: Pt sitting in chair, denies further nausea, ordered a light breakfast. C/o moderate to severe pain in left knee, would like Vistaril added for muscle spasm. She has 14 steps to get into her home and says that for this reason she may not be able to discharge home initially. Exam Vital Signs (past 8 hours): - 04/21/22 04:54 04/21/22 08:12 Temperature 98.1 F 98.6 F Pulse Rate 73 77 Respiratory Rate 16 16 Blood Pressure 150/71 H 134/51 L Pulse Oximetry 95 96 Oxygen Flow Rate 0 0 Oxygen Delivery Method Room Air Oxygen Flow Rate 0 Narrative Exam Narrative: LLE exam limited by pain, but pt demonstrates 5/5 strength in DF, PF, EHL. Sensation to touch intact throughout LLE. Calves soft, compressible, without palpable cords or masses. RAY wrap intact; unable to check Aquacel integrity d/t pain. Objective Labs Result Diagrams: 04/20/22 04:27 [facility] Medical History Fibromyalgia History of Mohs micrographic surgery for skin cancer HLD (hyperlipidemia) HTN (hypertension) Surgical History History of hysterectomy Hx of arthroscopy of left knee (08/16/21) Hx of bilateral cataract extraction Hx of hernia repair Social History household members: spouse Smoking Status: Never smoker alcohol intake: former Assessment & Plan Post-op Assessment and plan (1) Total knee replacement status: Assessment and Plan narrative: Continue PT. Vistaril added to pain meds per pt request. Plan for d/c tomorrow - may require SNF for further conditioning d/t living situation. ASA and SCDs for VTE prophylaxis. Postoperative Procedures: Procedures Operation Date: 04/19/22 14:15 Actual Procedure Side Surgeon p Total Knee Arthroplasty Left Sudha Yoon MD Postoperative day: 2
[2022-04-21] MEDS: hydrOXYzine pamoate 25 MG CAPSULE PO ×2 (10:14→21:34)
--- NOTE | 2022-04-21 10:59 | PT.IPTN ---
Current Diagnoses Unilateral primary osteoarthritis, left knee (04/19/22) Presence of unspecified artificial knee joint (04/19/22) Surgery Performed Operation Date: 04/19/22 14:15 Actual Procedures p Total Knee Arthroplasty(Left) - Sudha Yoon MD Physical Therapy Treatment Note M2 PT-IP Current Condition Start: 04/20/22 13:51 Freq: NEEDED Status: Active Protocol: Document 04/20/22 09:46 BH (Rec: 04/20/22 15:12 [id number]) Physical Therapy Current Condition Current Condition Evaluation Date 04/20/22 Treatment Diagnosis L TKA; difficulty walking Onset Date 04/19/2022 M3 PT-IP Subjective Start: 04/20/22 13:51 Freq: NEEDED Status: Active Protocol: Document 04/21/22 10:35 KS (Rec: 04/21/22 13:00 KS [id number]) Subjective Physical Therapy Visit Type Type Treatment Note Visit Start Time 10:35 Visit Stop Time 10:59 Total Visit Minutes 24 Notes Pts present during treatment. Number of AUTO PARTS MANAGER Visits 2 Physical Therapy Visit Comments Patient Comments Pt agreeable M4 PT-IP Mobility and Gait Start: 04/20/22 13:51 Freq: NEEDED Status: Active Protocol: Document 04/21/22 10:35 KS (Rec: 04/21/22 13:00 KS [id number]) PT-Bed Mobility Assessment Supine to Sit Supine to Sit Moderate Assistance,1 Person Assistance,Head of Bed Elevated,Bedrails Sit to Supine Sit to Supine Moderate Assistance,1 Person Assistance,Head of Bed Elevated PT-Transfer Assessment Sit to and From Stand Sit to and from Stand Moderate Assistance,1 Person Assistance,Use of Upper Extremities Equipment Transfer Assistive Device Gait Belt,Front Wheeled Walker Orthotic/Prosthetic Devices or Brace: No Transfers Transfer Destination Bed Transfer Technique Pt ambulated w/ FWW Transfer Ability Level of Assist Moderate Assistance,1 Person Assistance,Use of Upper Extremities Comments Mobility Comments Pt in bed and in room upon arrival. Pt reporting 7/ 10 pain but agreeable to ambulate. Pts provided Mod A to assist pt w/ sup<> sit for LE support. Demonstrated gait belt application and FWW guarding to pts . He provided Mod A for pt sit<>stand w/ FWW . Pt unable to fully extend L knee at this time when standing or amublating. She ambulated ~40 ft w/ FWW CGA and c/o increased pain. She is currently unable to WB long enough on LLE to elevate RLE high enough to complete a stair/step and has 14 BLAKE home w/ a landing after 7 steps. Pt returned to bed Mod A for LE elevation. Left in bed w/ all needs in reach. Gait Assessment Gait Gait Assistance Required: Contact Guard Assist,1 Person Assist Distance (Feet) 40 Able to Maintain Weight Bearing Status Yes During Gait Assistive Devices Assistive Device Gait Belt,Front Wheeled Walker Orthotic/Prosthetic Devices or Brace: No Gait Deviations General Gait Pattern Antalgic,Decreased Stride Length,Decreased Feet Clearance,Step-to Gait Factors Limiting Gait Function Factors Limiting Gait Function Decreased Activity Tolerance, Decreased Strength, Incoordination,Limited Range of Motion,Pain,Poor Balance, Poor Safety Awareness Comments Gait Comments Please refer to mobility section for details. Stair Climbing Assessment Comments Stair Climbing Comments Unable to assess d/t pt not able to WB fully or extend LLE to raise RLE for step/stair. PT-Balance Assessment Sitting Balance and Reactions Static Sitting Balance Ability Good Dynamic Sitting Balance Ability Good Standing Balance and Reactions Static Standing Balance Ability Fair Dynamic Standing Balance Ability Fair Device Used FWW M5 PT-IP Objective Assessments Start: 04/20/22 13:51 Freq: NEEDED Status: Active Protocol: Document 04/20/22 09:46 (Rec: 04/20/22 15:12 [id number]) Orientation Orientation/Cognition Level of Alertness Alert Orientation Name,Place,Situation Language Function Ability No Deficits Noted Safety Awareness Decreased Safety Awareness Memory Description No Deficits Noted Gross Range of Motion Lower Extremity ROM Assessment Left Impaired Strength Lower Extremity Strength Assessment Left Impaired Hip 3+/5 Knee 3+/5 Ankle 4/5 Coordination Assessment Gross Coordination Gross Coordination WNL Muscle Tone Muscle Tone WNL Yes M6 PT-IP Treatment Start: 04/20/22 13:51 Freq: NEEDED Status: Active Protocol: Document 04/21/22 10:35 KS (Rec: 04/21/22 13:00 KS [id number]) Physical Therapy Treatment Exercises Exercises Ankle Pumps,Gluteal Sets,Quad Sets Education Education Provided Weight Bearing Status,Post-Op Packet,Safety Other Treatments Other Treatment Performed Cont caregiver training w/ pts . M7 PT-IP Assessment and Plan Start: 04/20/22 13:51 Freq: NEEDED Status: Active Protocol: Document 04/21/22 10:35 KS (Rec: 04/21/22 13:00 KS [id number]) PT Summary Assessment and Plan Potential Rehabilitation Potential Good Summary Impairments Pain,ROM,Strength,Balance, Coordination,Bed Mobility, Transfers,Gait,Activity Tolerance Progress Towards Goals Slow Progress due to Pain,Slow Progress due to Activity Tolerance Assessment Summary Pt slowly making progress, but requiring Mod A for bed mobility and sit<>stands w/ FWW. Increased ambulation distance to 40 ft w/ FWW but pt still c/o high level of pain and is unable to fully extend LLE or stand on LLE well enough to elevate RLE high enough for stairs. Pt has 14 steps to enter home which is her biggest barrier at this time. If pt does return home, she will require HHPT rather than outpatient because she will not yet be able to descend and ascend 14 steps leading in and out of home for appointments. Goals Bed Mobility Goal Independent Transfer Goal Independent,Front Wheeled Walker Gait Goal Independent,Front Wheel Walker Gait Distance 200 Other Goals pt will be able to ascend and descend 8+8 steps with one rail/ or with quad cane independently. Days to Meet Goals 5 Frequency of Treatment Frequency Of Treatment Twice a Day Treatment Plan Physical Therapy Treatment Plan Bed Mobility Training,Transfer Training,Gait Training, Therapeutic Exercise,Balance Retraining,Post Op Education, Discharge Planning,Hot or Cold Pack,Neuromuscular Re-ed, Coordination Retraining,Manual Therapy Weight Bearing Status Weight Bearing Status Weight Bear as Tolerated Allowed Weight Bearing Amount (enter % WBAT LLE or #) (%) Discharge Recommendations PT Discharge Recommendations Home with 20/03 Assist Available,Home Health,SNF Rehab Equipment Needed for Home Before FWW Discharge Transportation Needs at Discharge Private Vehicle,Wheelchair/ Cabulance
[2022-04-21 11:56] VITALS: BP 148/58; PULSE 89; RESP 16; TEMP 37.2; O2SAT 98
--- NOTE | 2022-04-21 13:38 | PT.IPTN ---
Current Diagnoses Unilateral primary osteoarthritis, left knee (04/19/22) Presence of unspecified artificial knee joint (04/19/22) Surgery Performed Operation Date: 04/19/22 14:15 Actual Procedures p Total Knee Arthroplasty(Left) - Sudha Yoon MD Physical Therapy Treatment Note M2 PT-IP Current Condition Start: 04/20/22 13:51 Freq: NEEDED Status: Active Protocol: Document 04/20/22 09:46 BH (Rec: 04/20/22 15:12 [id number]) Physical Therapy Current Condition Current Condition Evaluation Date 04/20/22 Treatment Diagnosis L TKA; difficulty walking Onset Date 04/19/2022 M3 PT-IP Subjective Start: 04/20/22 13:51 Freq: NEEDED Status: Active Protocol: Document 04/21/22 13:15 KS (Rec: 04/21/22 13:59 KS [id number]) Subjective Physical Therapy Visit Type Type Treatment Note Visit Start Time 13:15 Visit Stop Time 13:38 Total Visit Minutes 23 Notes Pts present during treatment. Number of RIM FIRE CHARGER OPERATOR Visits 3 Physical Therapy Visit Comments Patient Comments Pt agreeable M4 PT-IP Mobility and Gait Start: 04/20/22 13:51 Freq: NEEDED Status: Active Protocol: Document 04/21/22 13:15 KS (Rec: 04/21/22 13:59 KS [id number]) PT-Transfer Assessment Sit to and From Stand Sit to and from Stand Moderate Assistance,1 Person Assistance,Use of Upper Extremities Equipment Transfer Assistive Device Gait Belt,Front Wheeled Walker Orthotic/Prosthetic Devices or Brace: No Transfers Transfer Destination Chair Transfer Technique Pt ambulated w/ FWW Transfer Ability Level of Assist Moderate Assistance,1 Person Assistance,Use of Upper Extremities Comments Mobility Comments Pt in chair upon arrival and still c/o extremely high pain and now upset stomach. Agreeable to mobilize and present. able to apply gait belt and provided sit<>stand assistance w/ cues. Pt sit<>stand w/ FWW Mod A w/ cues for hand placement. Pt still unable to fully extend LLE and only able to very minimally elevate RLE from floor. Pt ambulated ~10 ft to step stool and was able to then lift RLE onto step stool for very brief amount of time but was not able to step up. Pt began crying d/t pain. Ambulated 10 ft back to chair and after seated rest break agreed to try step stool again . Placed step stool in front of pt, she sit<>stand Mod A from w/ FWW and performed 1x step up w/ FWW and Mod A. Pt stepped both LE onto step stool and was able to step down nacwards Mod A and cues. Pt had to sit immediately due to pain and was unable to tolerate further actvity. Pt left in chair w/ all needs in reach. Gait Assessment Gait Gait Assistance Required: Contact Guard Assist,1 Person Assist Distance (Feet) 20 Able to Maintain Weight Bearing Status Yes During Gait Assistive Devices Assistive Device Gait Belt,Front Wheeled Walker Orthotic/Prosthetic Devices or Brace: No Gait Deviations General Gait Pattern Antalgic,Decreased Stride Length,Decreased Feet Clearance,Step-to Gait Factors Limiting Gait Function Factors Limiting Gait Function Decreased Activity Tolerance, Decreased Strength, Incoordination,Limited Range of Motion,Pain,Poor Balance, Poor Safety Awareness Comments Gait Comments Please refer to mobility section for details. Stair Climbing Assessment Evaluation Level of Assist On Stairs Moderate Assistance,1 Person Assistance Devices Stair Climbing Assistive Devices Front Wheel Walker Technique/Endurance Stair Climbing Direction Ascend and Descend Stair Climbing Technique Step to Step Number of Steps Climbed 1 Stair Climbing Set # Repetitions (reps) 1 Comments Stair Climbing Comments Pt ascended/descended 1 step stool w/ FWW Mod A w/ extreme difficulty and pain. Pt unable to tolerate more stair training this PM. She will need to complete a minimum of 7 steps w/ assisting prior to d/c. PT-Balance Assessment Sitting Balance and Reactions Static Sitting Balance Ability Good Dynamic Sitting Balance Ability Good Standing Balance and Reactions Static Standing Balance Ability Fair Dynamic Standing Balance Ability Fair Device Used FWW M5 PT-IP Objective Assessments Start: 04/20/22 13:51 Freq: NEEDED Status: Active Protocol: Document 04/20/22 09:46 (Rec: 04/20/22 15:12 [id number]) Orientation Orientation/Cognition Level of Alertness Alert Orientation Name,Place,Situation Language Function Ability No Deficits Noted Safety Awareness Decreased Safety Awareness Memory Description No Deficits Noted Gross Range of Motion Lower Extremity ROM Assessment Left Impaired Strength Lower Extremity Strength Assessment Left Impaired Hip 3+/5 Knee 3+/5 Ankle 4/5 Coordination Assessment Gross Coordination Gross Coordination WNL Muscle Tone Muscle Tone WNL Yes M6 PT-IP Treatment Start: 04/20/22 13:51 Freq: NEEDED Status: Active Protocol: Document 04/21/22 13:15 KS (Rec: 04/21/22 13:59 KS [id number]) Physical Therapy Treatment Exercises Exercises Ankle Pumps,Gluteal Sets,Quad Sets Education Education Provided Weight Bearing Status,Post-Op Packet,Safety Other Treatments Other Treatment Performed Cont caregiver training w/ pts . M7 PT-IP Assessment and Plan Start: 04/20/22 13:51 Freq: NEEDED Status: Active Protocol: Document 04/21/22 13:15 KS (Rec: 04/21/22 13:59 KS [id number]) PT Summary Assessment and Plan Potential Rehabilitation Potential Good Summary Impairments Pain,ROM,Strength,Balance, Coordination,Bed Mobility, Transfers,Gait,Activity Tolerance Progress Towards Goals Slow Progress due to Pain,Slow Progress due to Activity Tolerance Assessment Summary Pt continues to make very slow progress and is limited by high level of pain. Continued caregiver training w/ pts who was able to provide gait belt and assist following cues from this RIM FIRE CHARGER OPERATOR. Pt did complete 1x step stool but it was very difficult for her to complete and she began crying due to pain. Stairs remain pts biggest barrier to returning home as she must complete 7 at a time and a total of 14 to enter home. Will continue to assess progress, but at this time pt is not phyically able to complete stairs and therefore unsafe to return home. Goals Bed Mobility Goal Independent Transfer Goal Independent,Front Wheeled Walker Gait Goal Independent,Front Wheel Walker Gait Distance 200 Other Goals pt will be able to ascend and descend 8+8 steps with one rail/ or with quad cane independently. Days to Meet Goals 5 Frequency of Treatment Frequency Of Treatment Twice a Day Treatment Plan Physical Therapy Treatment Plan Bed Mobility Training,Transfer Training,Gait Training, Therapeutic Exercise,Balance Retraining,Post Op Education, Discharge Planning,Hot or Cold Pack,Neuromuscular Re-ed, Coordination Retraining,Manual Therapy Weight Bearing Status Weight Bearing Status Weight Bear as Tolerated Allowed Weight Bearing Amount (enter % WBAT LLE or #) (%) Discharge Recommendations PT Discharge Recommendations Home with 20/03 Assist Available,Home Health,SNF Rehab Equipment Needed for Home Before FWW Discharge Transportation Needs at Discharge Private Vehicle,Wheelchair/ Cabulance
[2022-04-21 17:16] VITALS: BP 138/58; PULSE 100; RESP 16; TEMP 37.5; O2SAT 98
[2022-04-21 22:00] VITALS: BP 134/65; PULSE 86; RESP 16; TEMP 38.1; O2SAT 96
[2022-04-22] MEDS: IBUPROFEN 400 MG TABLET PO ×4 (01:37→09:30)
[2022-04-22] MEDS: ACETAMINOPHEN 325 MG TABLET 650 MG PO (05:43)
[2022-04-22 06:00] VITALS: BP 125/63; PULSE 76; RESP 16; TEMP 36.8; O2SAT 98
[2022-04-22 07:30] VITALS: BP 119/50; PULSE 73; RESP 21; TEMP 37.6; O2SAT 96
--- NOTE | 2022-04-22 07:32 | P.PN_ITS ---
Subjective Subjective Date Patient Seen: 04/22/22 Time Patient Seen: 07:32 Interval history: Pt up to chair w/ at side. Comfortable, urinating without difficulty, denies further nausea. Taking IBPN and APAP only for pain control; refusing oxycodone d/t nausea. Started Vistaril yesterday but pt states this did not help. Offered tramadol, but pt refused; wants IBPN and APAP only. Stairs continue to be pts barrier for homegoing; she has 14 stairs to enter home and must be able to complete 7 at a time in order to be safe for discharge. She will work w/ PT again today and was advised that she will need SNF if she is unsafe to go home. Exam Vital Signs (past 8 hours): - 04/22/22 06:00 Temperature 98.2 F Pulse Rate 76 Respiratory Rate 16 Blood Pressure 125/63 Pulse Oximetry 98 Oxygen Flow Rate 0 Oxygen Delivery Method Room Air Oxygen Flow Rate 0 Narrative Exam Narrative: Very hesitant with all LLE movement d/t pain, but hip flexion, knee extension and flexion, DF, PF all intact. Sensation to touch intact in LLE. Calves soft, compressible, nontender and without palpable cords or masses. RAY wrap and Aquacel dressing CDI. Objective Labs Result Diagrams: 04/20/22 04:27 [facility] Medical History Fibromyalgia History of Mohs micrographic surgery for skin cancer HLD (hyperlipidemia) HTN (hypertension) Surgical History History of hysterectomy Hx of arthroscopy of left knee (08/16/21) Hx of bilateral cataract extraction Hx of hernia repair Social History household members: spouse Smoking Status: Never smoker alcohol intake: former Assessment & Plan Post-op Assessment and plan (1) Total knee replacement status: Assessment and Plan narrative: Pt will continue to work w/ PT today, but may ultimately need SNF prior to homegoing. Will write discharge plan for SNF and this can be changed to home if she is able to complete stairs today. Will also provide prescription for tramadol in the event the pt changes her mind. Postoperative Procedures: Procedures Operation Date: 04/19/22 14:15 Actual Procedure Side Surgeon p Total Knee Arthroplasty Left Sudha Yoon MD Postoperative day: 3
--- NOTE | 2022-04-22 07:49 | P.DS_ITS ---
History of Present Illness History of Present Illness Date Patient Seen: 04/22/22 Time Patient Seen: 07:50 Chief complaint: OPB Narrative: Operative Date/Time/Diagnoses Date of procedure: 04/19/22 Time of procedure: 14:30 Pre-op diagnosis: Left knee osteoarthritis failed extensive conservative treatment and previous arthroscopy Post-op diagnosis: same Procedure & Clinicians Procedure: Left total knee arthroplasty Same procedure as scheduled: Yes Indications: The patient has had progressively worsening left knee pain with radiographic changes consistent with arthritis. Non-operative management has failed and the patient has requested total knee replacement. The risks, benefits and alternatives to surgery were discussed with the patient prior to proceeding. Risks discussed included, but were not limited to, failure to relieve pain, stiffness, infection, nerve damage, deep venous thrombosis, pulmonary embolism, stroke, coma, heart attack, permanent paralysis and , as well as the potential need for eventual revision of the prosthetic. Surgeon: Sudha Yoon Aviation Safety Inspector: Colette Reyes Anesthesia Type: General and Spinal Operative Notes Findings: Left knee osteoarthritis with wear especially in the lateral compartment on the lateral femoral condyle Closure Type: primary Specimen(s): none sent Prosthetic devices, grafts, tissues, transplants, or devices: Yoon and nephew size 5 femur, size 3 tibia, +10 poly, 35 x 7.5 mm patella Estimated Blood Loss (mL): 250 Tourniquet time (min): 78 Discharge Providers Provider Discharge Date: 04/22/22 Primary care physician: Christa Valverde DO Consults: 04/19/22 09:17 Consult to Anesthesiology Routine Comment: Consulting Provider: Anesthesiologist Reason for consultation: Regional block for post operative pain control 04/19/22 17:13 Consult to Discharge Planning Routine Comment: Consult to Physical Therapy Evaluate & Treat Comment: Physician Instructions: postop TKA protocol Consult to Respiratory Therapy Evaluate & Treat Comment: Physician Instructions: Evaluate and treat Discharge provider: Sasha Sanchez PA-C Summary Hospital Course Discharge Diagnosis: s/p LEFT total knee arthroplasty Hospital Course: Pts hospital course was remarkable for postop N/V d/t narcotic pain medication and difficulty meeting PT goals. Please see today's progress note for details. Exam Vital Signs (past 8 hours): - 04/22/22 06:00 Temperature 98.2 F Pulse Rate 76 Respiratory Rate 16 Blood Pressure 125/63 Pulse Oximetry 98 Oxygen Flow Rate 0 Oxygen Delivery Method Room Air Oxygen Flow Rate 0 Narrative Exam Narrative: Please see today's progress note. Objective Labs Result Diagrams: 04/20/22 04:27 PFSH Medical History Fibromyalgia History of Mohs micrographic surgery for skin cancer HLD (hyperlipidemia) HTN (hypertension) Surgical History History of hysterectomy Hx of arthroscopy of left knee (08/16/21) Hx of bilateral cataract extraction Hx of hernia repair Social History household members: spouse Smoking Status: Never smoker alcohol intake: former Discharge Assessment & Plan Assessment and Plan Assessment: s/p LEFT total knee arthroplasty Plan of Treatment: Discharge home vs SNF based on progress w/ PT. Discharge Plan Discharge Plan Patient Disposition: SNF I certify the postop hospital care home care is medically necessary on a continuing basis for any conditions for which he/ she received care during this hospitalization.: Yes The receiving facility has agreed to accept transfer and provide medical treatment.: Yes Discharge orders & Medications Discharge Orders: Discharge (Order); Ordered 04/22/22 Ordered By: Sasha Sanchez Prescriptions: New acetaminophen 325 mg Tablet 650 mg PO Q6HR Qty: 1 0RF aspirin 81 mg Tablet,Delayed Release (Dr/Ec) 81 mg PO BID Qty: 1 0RF ibuprofen 400 mg Tablet 400 mg PO Q4HR Qty: 1 0RF Rx Instructions: Do not fill - for d/c instruction only ondansetron 4 mg Tablet,Disintegrating 4 mg PO Q4HR PRN (Reason: Nausea And Vomiting) Qty: 20 0RF tramadol 50 mg tablet 50 mg PO Q4H PRN (Reason: pain (scale score 7-10)) Qty: 60 0RF Continued atorvastatin 20 mg Tablet 20 mg PO DAILY amlodipine 5 mg Tablet 5 mg PO DAILY Premarin 0.625 mg Tablet 0.625 mg PO DAILY Rx Instructions: cyclically Follow up/Referrals: Christa Valverde DO [Primary Care Provider] - Sudha Yoon MD [Physician] - As previously scheduled (Follow up w/ Dr Yoon on 05/04/2022 @ 9:30 am at [facility] in [place].) Diet/Activity/Treatments Diet: Diet as Tolerated Activity: Walk frequently! WBAT to LLE. Cold/Heat Therapy: Ice to knee as needed for pain. Skin/Wound/Dressing Care Report to your healthcare provider any signs of infection, such as:: chills, fever, night sweats, unusual drainage and unusual redness Dressing: May shower. Leave Aquacel dressing in place until follow up in office. No bathing or otherwise soaking incision. [facility] Rehab type: Physical therapy and Occupational therapy Visit Report/Discharge Packet Instructions: DI for Knee Replacement Stand Alone Forms: Surgery Discharge Discharge Data Primary Care Provider: Christa Valverde Attending Provider: Sudha Yoon
[2022-04-22] MEDS: ASPIRIN EC 81 MG TABLET PO (08:11)
[2022-04-22] MEDS: ATORVASTATIN 20 MG TABLET PO (08:12)
[2022-04-22] MEDS: DOCUSATE 100 MG CAPSULE PO (08:12)
[2022-04-22] MEDS: AMLODIPINE 5 MG TABLET PO (08:12)
[2022-04-22] MEDS: ESTROGENS, CONJUGATED 0.625 MG TABLET PO (08:14)
--- NOTE | 2022-04-22 09:25 | PT.IPTN ---
Current Diagnoses Unilateral primary osteoarthritis, left knee (04/19/22) Presence of unspecified artificial knee joint (04/19/22) Surgery Performed Operation Date: 04/19/22 14:15 Actual Procedures p Total Knee Arthroplasty(Left) - Sudha Yoon MD Physical Therapy Treatment Note M2 PT-IP Current Condition Start: 04/20/22 13:51 Freq: NEEDED Status: Active Protocol: Document 04/20/22 09:46 BH (Rec: 04/20/22 15:12 [id number]) Physical Therapy Current Condition Current Condition Evaluation Date 04/20/22 Treatment Diagnosis L TKA; difficulty walking Onset Date 04/19/2022 M3 PT-IP Subjective Start: 04/20/22 13:51 Freq: NEEDED Status: Active Protocol: Document 04/22/22 09:00 KS (Rec: 04/22/22 13:50 KS [id number]) Subjective Physical Therapy Visit Type Type Treatment Note Visit Start Time 09:00 Visit Stop Time 09:25 Total Visit Minutes 25 Notes Pts present during treatment for caregiver training. Number of CELL TUBER HAND Visits 4 Physical Therapy Visit Comments Patient Comments Pt agreeable M4 PT-IP Mobility and Gait Start: 04/20/22 13:51 Freq: NEEDED Status: Active Protocol: Document 04/22/22 09:00 KS (Rec: 04/22/22 13:50 KS [id number]) PT-Bed Mobility Assessment Scooting Scooting to Edge of Bed Contact Guard Assistance PT-Transfer Assessment Sit to and From Stand Sit to and from Stand Minimal Assistance,1 Person Assistance,Use of Upper Extremities Equipment Transfer Assistive Device Gait Belt,Front Wheeled Walker Orthotic/Prosthetic Devices or Brace: No Transfers Transfer Destination Chair Transfer Technique Pt ambulated w/ FWW Transfer Ability Level of Assist Minimal Assistance,Moderate Assistance,1 Person Assistance ,Use of Upper Extremities Comments Mobility Comments Pt in chair upon arrival and present. able to apply gaitbelt and assist for pt sit<>stand. Pt able to increase ambulation distance to ~45 ft w/ FWW but still unable to fully extend LLE. Pt reported fatigue and returned to chair. Expressed desire to go to SNF due to pain and lack of progress w/ mobility. Gait Assessment Gait Gait Assistance Required: Contact Guard Assist,1 Person Assist Distance (Feet) 45 Able to Maintain Weight Bearing Status Yes During Gait Assistive Devices Assistive Device Gait Belt,Front Wheeled Walker Orthotic/Prosthetic Devices or Brace: No Gait Deviations General Gait Pattern Antalgic,Decreased Stride Length,Decreased Feet Clearance,Step-to Gait Factors Limiting Gait Function Factors Limiting Gait Function Decreased Activity Tolerance, Decreased Strength, Incoordination,Limited Range of Motion,Pain,Poor Balance, Poor Safety Awareness Comments Gait Comments Please refer to mobility section for details. PT-Balance Assessment Sitting Balance and Reactions Static Sitting Balance Ability Good Dynamic Sitting Balance Ability Good Standing Balance and Reactions Static Standing Balance Ability Fair Dynamic Standing Balance Ability Fair Device Used FWW M5 PT-IP Objective Assessments Start: 04/20/22 13:51 Freq: NEEDED Status: Active Protocol: Document 04/20/22 09:46 (Rec: 04/20/22 15:12 [id number]) Orientation Orientation/Cognition Level of Alertness Alert Orientation Name,Place,Situation Language Function Ability No Deficits Noted Safety Awareness Decreased Safety Awareness Memory Description No Deficits Noted Gross Range of Motion Lower Extremity ROM Assessment Left Impaired Strength Lower Extremity Strength Assessment Left Impaired Hip 3+/5 Knee 3+/5 Ankle 4/5 Coordination Assessment Gross Coordination Gross Coordination WNL Muscle Tone Muscle Tone WNL Yes M6 PT-IP Treatment Start: 04/20/22 13:51 Freq: NEEDED Status: Active Protocol: Document 04/22/22 09:00 KS (Rec: 04/22/22 13:50 KS [id number]) Physical Therapy Treatment Education Education Provided Weight Bearing Status,Post-Op Packet,Safety Other Treatments Other Treatment Performed Cont caregiver training w/ pts . M7 PT-IP Assessment and Plan Start: 04/20/22 13:51 Freq: NEEDED Status: Active Protocol: Document 04/22/22 09:00 KS (Rec: 04/22/22 13:50 KS [id number]) PT Summary Assessment and Plan Potential Rehabilitation Potential Good Summary Impairments Pain,ROM,Strength,Balance, Coordination,Bed Mobility, Transfers,Gait,Activity Tolerance Progress Towards Goals Slow Progress due to Pain,Slow Progress due to Activity Tolerance Assessment Summary Pt able to increase ambulation distance, able to assist w/ transfers. Pt main barrier continues to be 14 steps leading into home. She is unable to safely stand on LLE d/t inablity to fully extend and limited by pain and weakness. She now prefers going to SNF to improve and would benefit. Goals Bed Mobility Goal Independent Transfer Goal Independent,Front Wheeled Walker Gait Goal Independent,Front Wheel Walker Gait Distance 200 Other Goals pt will be able to ascend and descend 8+8 steps with one rail/ or with quad cane independently. Days to Meet Goals 5 Frequency of Treatment Frequency Of Treatment Twice a Day Treatment Plan Physical Therapy Treatment Plan Bed Mobility Training,Transfer Training,Gait Training, Therapeutic Exercise,Balance Retraining,Post Op Education, Discharge Planning,Hot or Cold Pack,Neuromuscular Re-ed, Coordination Retraining,Manual Therapy Weight Bearing Status Weight Bearing Status Weight Bear as Tolerated Allowed Weight Bearing Amount (enter % WBAT LLE or #) (%) Discharge Recommendations PT Discharge Recommendations Home with 20/03 Assist Available,Home Health,SNF Rehab Equipment Needed for Home Before FWW Discharge Transportation Needs at Discharge Private Vehicle,Wheelchair/ Cabulance
[2022-04-22] MEDS: SODIUM CHLORIDE 0.9% FLUSH 10 ML IV (10:06)
[2022-04-22 12:00] VITALS: BP 126/51; PULSE 77; RESP 22; TEMP 37.4; O2SAT 96
[2022-04-22] MEDS: ACETAMINOPHEN 325 MG TABLET 975 MG PO (12:01)
--- NOTE | 2022-04-22 12:17 | CM.DPC ---
DCP continued: CM met with patient and her with BHAVESH Romano to discuss discharge planning. BHAVESH Romano was concerned for patients plan for DC home with out BLS transport due to her need to climb 14 steps into her home and her and neighbor carrying her into her home. CM explained that carrying in the patient into her home rather then having BLS bring her in her home was dangerous and could cause injury and CM highly recommended BLS transport home VS patients spouse transporting her home and carrying her up stairs. CM also suggested CM call and see what the copay would be for BLS transport since there major concern was for the financial burden. Called who stated they are not currently covered under there insurance- let them know about prior authorization - was told this was not in there system. Cm emailed admissions and billing to look into this. CM let patient and her know who stated understanding and plan to take the patient home with out BLS transport even though BHAVESH romano and BHAVESH lieberman stated concern for safety. Kathleen Ni RNcare program resident
--- NOTE | 2022-04-22 12:57 | PT.IPTN ---
Current Diagnoses Unilateral primary osteoarthritis, left knee (04/19/22) Presence of unspecified artificial knee joint (04/19/22) Surgery Performed Operation Date: 04/19/22 14:15 Actual Procedures p Total Knee Arthroplasty(Left) - Sudha Yoon MD Physical Therapy Treatment Note M2 PT-IP Current Condition Start: 04/20/22 13:51 Freq: NEEDED Status: Active Protocol: Document 04/20/22 09:46 BH (Rec: 04/20/22 15:12 [id number]) Physical Therapy Current Condition Current Condition Evaluation Date 04/20/22 Treatment Diagnosis L TKA; difficulty walking Onset Date 04/19/2022 M3 PT-IP Subjective Start: 04/20/22 13:51 Freq: NEEDED Status: Active Protocol: Document 04/22/22 12:17 KS (Rec: 04/22/22 14:00 KS [id number]) Subjective Physical Therapy Visit Type Type Treatment Note Visit Start Time 12:17 Visit Stop Time 12:57 Total Visit Minutes 40 Notes Pts present during treatment for caregiver training. Number of BUILDING EQUIPMENT INSPECTOR Visits 5 Physical Therapy Visit Comments Patient Comments Pt agreeable M4 PT-IP Mobility and Gait Start: 04/20/22 13:51 Freq: NEEDED Status: Active Protocol: Document 04/22/22 12:17 KS (Rec: 04/22/22 14:00 KS [id number]) PT-Bed Mobility Assessment Supine to Sit Supine to Sit Minimal Assistance,1 Person Assistance,Head of Bed Elevated,Bedrails Scooting Scooting to Edge of Bed Contact Guard Assistance PT-Transfer Assessment Sit to and From Stand Sit to and from Stand Minimal Assistance,1 Person Assistance,Use of Upper Extremities Equipment Transfer Assistive Device Gait Belt,Front Wheeled Walker Orthotic/Prosthetic Devices or Brace: No Transfers Transfer Destination Chair Transfer Technique Pt ambulated w/ FWW Transfer Ability Level of Assist Minimal Assistance,Moderate Assistance,1 Person Assistance ,Use of Upper Extremities Comments Mobility Comments Pt in bed upon arrival and aware of difficulties finding SNF placement. wanting to carry pt up stairs, pt and agreeable to further training. Pts provided gait belt and Min A for pt sit<>stand w/ FWW. Transported pt to practice stairs in w/c for energy conservation. Pt was able to ascend/descend 3 steps w/ BHR Mod A and cues provided by pts . Unable to complete furhter stair training due to pain and fatigue. Pt will have to ascend 14 steps in total to enter home, but can take seated break following 7 steps . Pt states she feels she will be able to accomplish at home . Returned to room and chair w / Min A. Gait Assessment Gait Gait Assistance Required: Contact Guard Assist,1 Person Assist Distance (Feet) 20 Able to Maintain Weight Bearing Status Yes During Gait Assistive Devices Assistive Device Gait Belt,Front Wheeled Walker Orthotic/Prosthetic Devices or Brace: No Gait Deviations General Gait Pattern Antalgic,Decreased Stride Length,Decreased Feet Clearance,Step-to Gait Factors Limiting Gait Function Factors Limiting Gait Function Decreased Activity Tolerance, Decreased Strength, Incoordination,Limited Range of Motion,Pain,Poor Balance, Poor Safety Awareness Comments Gait Comments Continues to lack L knee extension. Stair Climbing Assessment Evaluation Level of Assist On Stairs Moderate Assistance,1 Person Assistance Devices Stair Climbing Assistive Devices Left Railing,Right Railing Technique/Endurance Stair Climbing Direction Ascend and Descend Stair Climbing Technique Step to Step Number of Steps Climbed 3 Stair Climbing Set # Repetitions (reps) 1 Comments Stair Climbing Comments Pt ascended/descended 3 steps w/ bilateral hand rails and step to pattern w/ cues for sequencing and Mod A provided by pts . Pt unable to tolerate more stairs at this time and would like to save energy for stairs at home. Spoke at length about at home safety and ascending stairs w/ 2 PA, and pt agreeable to seek additional help. Pt agrees to take eated rest break on landing following 7 steps. confirms he will place chair for pt to take seated rest break. PT-Balance Assessment Sitting Balance and Reactions Static Sitting Balance Ability Good Dynamic Sitting Balance Ability Good Standing Balance and Reactions Static Standing Balance Ability Fair Dynamic Standing Balance Ability Fair Device Used FWW M5 PT-IP Objective Assessments Start: 04/20/22 13:51 Freq: NEEDED Status: Active Protocol: Document 04/20/22 09:46 (Rec: 04/20/22 15:12 [id number]) Orientation Orientation/Cognition Level of Alertness Alert Orientation Name,Place,Situation Language Function Ability No Deficits Noted Safety Awareness Decreased Safety Awareness Memory Description No Deficits Noted Gross Range of Motion Lower Extremity ROM Assessment Left Impaired Strength Lower Extremity Strength Assessment Left Impaired Hip 3+/5 Knee 3+/5 Ankle 4/5 Coordination Assessment Gross Coordination Gross Coordination WNL Muscle Tone Muscle Tone WNL Yes M6 PT-IP Treatment Start: 04/20/22 13:51 Freq: NEEDED Status: Active Protocol: Document 04/22/22 12:17 KS (Rec: 04/22/22 14:00 KS [id number]) Physical Therapy Treatment Education Education Provided Weight Bearing Status,Post-Op Packet,Safety Other Treatments Other Treatment Performed Cont caregiver training w/ pts . M7 PT-IP Assessment and Plan Start: 04/20/22 13:51 Freq: NEEDED Status: Active Protocol: Document 04/22/22 12:17 KS (Rec: 04/22/22 14:00 KS [id number]) PT Summary Assessment and Plan Potential Rehabilitation Potential Good Summary Impairments Pain,ROM,Strength,Balance, Coordination,Bed Mobility, Transfers,Gait,Activity Tolerance Progress Towards Goals Slow Progress due to Pain,Slow Progress due to Activity Tolerance Assessment Summary Pt remains limited by pain and weakness. Recommending SNF, however there has been difficulty w/ placing pt and she now plans to d/c home. She has 14 total steps to enter home and was only able to complete 3 while at hospital. confirms he will have FWW and second person assist for pt upon arrival at home. Due to pts inability to extend LLE, pain, weakness, and low activity tolerance cont to recommend SNF to improve. If she does go home she will require HHPT, 24/7 assist and BLS transport to ensure she safely gets inside of home. Goals Bed Mobility Goal Independent Transfer Goal Independent,Front Wheeled Walker Gait Goal Independent,Front Wheel Walker Gait Distance 200 Other Goals pt will be able to ascend and descend 8+8 steps with one rail/ or with quad cane independently. Days to Meet Goals 5 Frequency of Treatment Frequency Of Treatment Twice a Day Treatment Plan Physical Therapy Treatment Plan Bed Mobility Training,Transfer Training,Gait Training, Therapeutic Exercise,Balance Retraining,Post Op Education, Discharge Planning,Hot or Cold Pack,Neuromuscular Re-ed, Coordination Retraining,Manual Therapy Weight Bearing Status Weight Bearing Status Weight Bear as Tolerated Allowed Weight Bearing Amount (enter % WBAT LLE or #) (%) Discharge Recommendations PT Discharge Recommendations Home with 24/7 Assist Available,Home Health,SNF Rehab Equipment Needed for Home Before FWW Discharge Transportation Needs at Discharge Private Vehicle,Wheelchair/ Cabulance
--- NOTE | 2022-04-22 14:34 | CM.DPC ---
DCP Cont: DCP met with pt and pt spouse this afternoon to discuss the current situation for discharge. DCP explained that unfortunately, SNF was not going to be an option due to pt admission status being SDC. DCP explained that the two options would be to either privately pay for a SNF or to discharge home with home health. Spouse and pt had questions and DCP answered to the best of her ability. Home health option was decided upon. DCP concerned for the safety of the patient getting her into her home as she has 14 steps to get up and into her house. BLS was discussed and after determining the patient's rate for transfer would be $1800, pt and pt spouse declined the option for BLS. Pt spouse determined that he would be able to get her into the house with the help of his brother and neighbors. called to determine what the co-pay for [employer] coverage would be for BLS and it was then determined that the patient has inactive insurance through [employer]. has a prior authorization for this hospital stay so unaware of this issue. Kathleen in able to assist with this case. Kathleen sent admissions counselors information for further follow up. Kathleen and myself went in to discuss this with pt and pt and spouse were unaware. Pt spouse stating that this is inaccurate information. Instructed to contact [facility] for more information. MAGGIEP spoke with Nat in PT and informed her of decision to leave and go home with home health without BLS. Nat worked with pt and pt was able to climb 3 stairs. Pt discharged home via spouse POV with [facility] referral. Pt does have outpatient PT scheduled but not aware as to when she would be able to start due to her being home bound. Hillary Hu RN/DCP
--- NOTE | 2022-04-27 14:41 | CM.DPNOTE ---
Late entry: Bessy called from [facility] saying they have left 3 messages on Yoly's voicemail with no return calls. Apparently her 's number is incorrect. Vannesa Buenrostro CM Assist.
== END 2022-04-22 14:15 | disposition home or self-care (01) ==
LOC: OR 12:01 → AC 12:02
PROVIDERS: PCP Family Medicine; Referring Provider Orthopaedic Surgery; Visit Provider Orthopaedic Surgery
PROC: 0SRD0JZ Replacement of Left Knee Joint with Synthetic Substitute, Open Approach (ICD-10-PCS; CPT 27447; principal; 2022-04-19 14:15)
DX: M17.12 Unilateral primary osteoarthritis, left knee (principal); I10 Essential (primary) hypertension
CPT/HCPCS: 27447; 36415; 64450; 73560; 85014; 85018; 97110; 97116; 97162; 97530; C1776; C1713; C9290; J0171; J0690; J1170; J2250; J2405; J2704; J2765; J3010

== ENCOUNTER → 2022-04-26 11:03 | Outpatient (CLI) | payer OTHER, SELFPAY ==
[2022-04-19 18:46] VITALS: BMI 28.0
--- NOTE | 2022-04-26 | DI.US.S_ITS ---
PROCEDURE: US PERIP VENOUS LOW EXTREM LT INDICATIONS: EDEMA 1 WEEK POST TKA TECHNIQUE: Real-time imaging, as well as color and pulse Doppler interrogation, were performed of the lower extremity deep veins from the inguinal ligament to the popliteal fossa. COMPARISON: [facility], US, US PERIP VENOUS LOW EXTREM LT, 09/29/2021, 11:56. [facility], CR, XR KNEE LT 1TO2V, 04/19/2022, 16:29. FINDINGS: There is deep venous thrombosis seen within the popliteal vein, which is occlusive. No other findings of deep venous thrombosis can be seen. IMPRESSION: Occlusive deep venous thrombosis seen within the popliteal vein. Note: Concordant preliminary findings given by the spin instructor upon the completion of the examination to nurse Greco at 11:56 a.m. on April 26, 2022. Dictated by: Nir Palacios M.D. on 04/26/2022 at 11:19 Approved by: Nir Palacios M.D. on 04/26/2022 at 11:20
== END ==
PROVIDERS: PCP Family Medicine; Referring Provider Orthopaedic Surgery; Visit Provider Orthopaedic Surgery
DX: I82.432 Acute embolism and thrombosis of left popliteal vein (principal); M25.462 Effusion, left knee; R60.0 Localized edema; Z96.652 Presence of left artificial knee joint
CPT/HCPCS: 93971

== ENCOUNTER 2022-04-26 12:25 | Emergency (ER) | payer OTHER, SELFPAY ==
[2022-04-19 18:46] VITALS: BMI 28.0
[2022-04-26 12:38] VITALS: BP 146/65; PULSE 78; RESP 18; TEMP 36.7; O2SAT 99; BMI 26.4
--- NOTE | 2022-04-26 15:28 | ED.EXTPRO ---
HPI - Extremity Problem <YURI Arcos - Last Filed: 04/26/22 17:10> General Chief complaint: Extremity Problem,Nontraumatic Stated complaint: Left knee swelling warm had us dvt Time Seen by Provider: 04/26/22 15:12 Source: patient Mode of arrival: Family Vehicle History of Present Illness HPI Narrative: This is a 66-year-old female with recent history of left total knee replacement 1 week ago with history of fibromyalgia, hyperlipidemia, hypertension who presents to the emergency department today for worsening swelling of her lower extremity with concern for a blood clot. She states that her lower extremity is very swollen and the skin is taut, there is significant ecchymosis and she has difficulty moving around. Patient denies any sensation changes. Related Data Home Medications Medication Instructions Recorded Confirmed amlodipine 5 mg tablet 5 mg PO DAILY 04/12/22 04/19/22 atorvastatin 20 mg tablet 20 mg PO DAILY 04/12/22 04/19/22 conjugated estrogens 0.625 mg 0.625 mg PO DAILY 04/12/22 04/19/22 tablet (Premarin) Previous Rx's Medication Instructions Recorded acetaminophen 325 mg tablet 650 mg PO Q6HR #1 tab 04/22/22 aspirin 81 mg tablet,delayed 81 mg PO BID #1 tab 04/22/22 release ibuprofen 400 mg tablet 400 mg PO Q4HR #1 tab 04/22/22 ondansetron 4 mg disintegrating 4 mg PO Q4HR PRN Nausea And 04/22/22 tablet Vomiting #20 tabs tramadol 50 mg tablet 50 mg PO Q4H PRN pain (scale score 04/22/22 7-10) #60 tabs apixaban 5 mg tablet (Eliquis) 5 mg PO BID #90 tabs 04/26/22 hydrocodone 5 mg-acetaminophen 325 1 tab PO BID PRN pain #14 tabs 04/26/22 mg tablet ondansetron 4 mg disintegrating 4 mg PO Q8H #14 tabs 04/26/22 tablet Allergies Allergy/AdvReac Type Severity Reaction Status Date / Time erythromycin base Allergy Intermediate Hives Verified 04/26/22 12:37 Review of Systems <YURI Arcos - Last Filed: 04/26/22 17:10> Review of Systems Narrative: Review of systems is negative for acute abnormalities unless otherwise noted in HPI Patient History <YURI Arcos - Last Filed: 04/26/22 17:10> Medical History Fibromyalgia History of Mohs micrographic surgery for skin cancer HLD (hyperlipidemia) HTN (hypertension) Surgical History History of hysterectomy Hx of arthroscopy of left knee (08/16/21) Hx of bilateral cataract extraction Hx of hernia repair Social History household members: spouse Smoking Status: Never smoker alcohol intake: former Smoking Status: Never smoker alcohol intake frequency: 0-2 drinks per day Substance Use Type: does not use Exam <YURI Arcos - Last Filed: 04/26/22 17:10> Narrative Exam Narrative: Reviewed vitals signs and nursing notes. General: cooperative, comfortable, in no acute distress, well groomed HEENT: symmetrical facial expressions, moist mucous membranes Cardiovascular: regular rate and rhythm, no peripheral edema, warm extremities Respiratory: normal effort, able to speak in complete sentences, without wheezing, stridor, or abnormal breath sounds. No retractions or tachypnea. GI: abdomen soft, nontender to palpation, nondistended, without masses, rebound tenderness or exquisite tenderness with exam. MSK: moves all extremities, neurovascularly intact, no weakness, normal tone, left lower extremity is very edematous, skin is taut, tender to palpation everywhere, DP and PT pulses are dopplerable and strong, brisk cap refill, no open wounds or weeping Skin: brisk capillary refill, without pallor or erythema Neuro: normal speech and cognition, A&O x3, ambulatory, clear speech Psych: mental status is grossly normal, congruent mood, normal affect, pleasant and cooperative Initial Vital Signs Initial Vital Signs: Vital Signs Temperature 98.1 F 04/26/22 12:38 Pulse Rate 78 04/26/22 12:38 Respiratory Rate 18 04/26/22 12:38 Blood Pressure 146/65 H 04/26/22 12:38 Pulse Oximetry 99 04/26/22 12:38 Oxygen Delivery Method 04/26/22 12:38 <DO Kristina Ochoa Last Filed: 04/30/22 08:41> Initial Vital Signs Initial Vital Signs: Vital Signs Temperature 98.1 F 04/26/22 12:38 Pulse Rate 78 04/26/22 12:38 Respiratory Rate 18 04/26/22 12:38 Blood Pressure 146/65 H 04/26/22 12:38 Pulse Oximetry 99 04/26/22 12:38 Oxygen Delivery Method 04/26/22 12:38 Course <YURI Arcos - Last Filed: 04/26/22 17:10> Orders Ordered: Discontinued Medications Hydrocodone Bitart/Acetaminophen (Hydrocodone/Acet 5/325 Tablet) 1 tab PO NOW ONE Stop: 04/26/22 15:28 Last Admin: 04/26/22 15:52 Dose: 1 tab Documented By: PA Hydrocodone Bitart/Acetaminophen (Hydrocodone/Acet 5/325 Prepack) 1 bottle MISC SEEINSTR ONE Stop: 04/26/22 16:33 Last Admin: 04/26/22 16:45 Dose: 1 bottle Documented By: PA Apixaban (Apixaban 5 Mg Tablet) 10 mg PO NOW ONE Stop: 04/26/22 16:33 Last Admin: 04/26/22 16:44 Dose: 10 mg Documented By: PA Ketorolac Tromethamine (Ketorolac 30 Mg/Ml Vial) 15 mg IM NOW ONE Stop: 04/26/22 15:28 Last Admin: 04/26/22 15:53 Dose: 15 mg Documented By: PA Ondansetron HCl (Ondansetron 4 Mg Odt) 4 mg SL NOW ONE Stop: 04/26/22 15:28 Last Admin: 04/26/22 15:52 Dose: 4 mg Documented By: PA Ondansetron HCl (Ondansetron 4 Mg Odt Prepack) 1 bottle MISC SEEINSTR ONE Stop: 04/26/22 16:33 Last Admin: 04/26/22 16:45 Dose: 1 bottle Documented By: PA Vital Signs Vital signs: Vital Signs - 8 hr 04/26/22 12:38 04/26/22 16:24 Temperature 98.1 F Pulse Rate 78 77 Respiratory Rate 18 Blood Pressure 146/65 H Pulse Oximetry 99 98 Oxygen Delivery Method Room Air Room Air <Dayami Luther DO - Last Filed: 04/30/22 08:41> Orders Ordered: Discontinued Medications Hydrocodone Bitart/Acetaminophen (Hydrocodone/Acet 5/325 Tablet) 1 tab PO NOW ONE Stop: 04/26/22 15:28 Last Admin: 04/26/22 15:52 Dose: 1 tab Documented By: PA Hydrocodone Bitart/Acetaminophen (Hydrocodone/Acet 5/325 Prepack) 1 bottle MISC SEEINSTR ONE Stop: 04/26/22 16:33 Last Admin: 04/26/22 16:45 Dose: 1 bottle Documented By: PA Apixaban (Apixaban 5 Mg Tablet) 10 mg PO NOW ONE Stop: 04/26/22 16:33 Last Admin: 04/26/22 16:44 Dose: 10 mg Documented By: PA Ketorolac Tromethamine (Ketorolac 30 Mg/Ml Vial) 15 mg IM NOW ONE Stop: 04/26/22 15:28 Last Admin: 04/26/22 15:53 Dose: 15 mg Documented By: PA Ondansetron HCl (Ondansetron 4 Mg Odt) 4 mg SL NOW ONE Stop: 04/26/22 15:28 Last Admin: 04/26/22 15:52 Dose: 4 mg Documented By: PA Ondansetron HCl (Ondansetron 4 Mg Odt Prepack) 1 bottle MISC SEEINSTR ONE Stop: 04/26/22 16:33 Last Admin: 04/26/22 16:45 Dose: 1 bottle Documented By: PA Vital Signs Vital signs: Vital Signs - 8 hr 04/26/22 12:38 04/26/22 16:24 Temperature 98.1 F Pulse Rate 78 77 Respiratory Rate 18 Blood Pressure 146/65 H Pulse Oximetry 99 98 Oxygen Delivery Method Room Air Room Air MDM - Extremity (Nontraumatic) <YURI Arcos - Last Filed: 04/26/22 17:10> Lab Data Result diagrams: 04/26/22 15:30 04/26/22 15:30 Labs: Lab Results 04/26/22 04/26/22 04/26/22 Range/Units 15:30 15:30 15:30 WBC 8.2 (4.5-11.0) X10^3/uL RBC 4.17 (4.0-5.2) X10^6/uL Hgb 12.1 (12.0-16.0) g/dL Hct 35.1 L (36-46) % MCV 84.3 (80-100) fL MCH 29.1 (26-34) PG MCHC 34.5 (30-36) % RDW 13.9 (11.6-14.8) % Plt Count 261 (150-400) X10^3/uL Neut % (Auto) 72.9 (50-75) % Lymph % (Auto) 16.3 L (25-40) % Cla[place]orne % (Auto) 7.0 (3-14) % Eos % (Auto) 3.2 (2-4) % Baso % (Auto) 0.6 (0-2) % Neut # (Auto) 6000 (7221-7786) /uL Lymph # (Auto) 1300 (8038-0137) /uL [place]orne # (Auto) 600 (0-900) /uL Eos # (Auto) 300 (0-450) /uL Baso # (Auto) 0 (0-100) /uL PT 12.0 (10.1-12.7) SECONDS INR 1.0 (0.9-1.3) APTT 29 (26-36) SECONDS Sodium 139 (137-145) mmol/L Potassium 4.1 (3.4-5.1) mmol/L Chloride 103 (98-107) mmol/L Carbon Dioxide 31 (22-32) mmol/L BUN 15 (7-17) mg/dL Creatinine 0.62 (0.52-1.04) mg/dL Estimated GFR > 60 (>60) mL/min BUN/Creatinine Ratio 24.2 H (6-22) Glucose 161 H (80-110) mg/dL Calcium 9.1 (8.4-10.2) mg/dL Total Bilirubin 0.4 (0.2-1.3) mg/dL AST 31 (14-36) IU/L ALT 24 (<35) IU/L Alkaline Phosphatase 75 (38-126) U/L Total Protein 7.4 (6.3-8.2) g/dL Albumin 3.8 (3.5-5.0) g/dL Globulin 3.6 (1.7-4.1) g/dL Albumin/Globulin Ratio 1.1 (1.0-2.8) Imaging Data US - DVT: Radiologist's Impression: PROCEDURE:? US PERIPH VENOUS LOW EXTREM LT ? INDICATIONS:? EDEMA 1 WEEK POST TKA ? TECHNIQUE:? Real-time imaging, as well as color and pulse Doppler interrogation, were performed of the lower extremity deep veins from the inguinal ligament to the popliteal fossa.? ? COMPARISON:? [facility], US, US PERIPH VENOUS LOW EXTREM LT, 09/29/2021, 11:56.? [facility], CR, XR KNEE LT 1TO2V, 04/19/2022, 16:29. ? FINDINGS:? There is deep venous thrombosis seen within the popliteal vein, which is occlusive. ? No other findings of deep venous thrombosis can be seen. ? ? IMPRESSION:? Occlusive deep venous thrombosis seen within the popliteal vein. ? Note: Concordant preliminary findings given by the detective bureau chief upon the completion of the examination to nurse Greco at 11:56 a.m. on April 26, 2022. ? ? ? Dictated by: Nir Palacios M.D. on 04/26/2022 at 11:19 ? ? Approved by: Nir Palacios M.D. on 04/26/2022 at 11:20 ? MDM Narrative Medical decision making narrative: This is a 66-year-old female presents to the emergency department left lower extremity swelling and pain which has gotten worse since her total knee replacement [address] Sudha Yoon. Patient has a history of hypertension and hyperlipidemia, denies any chest pain, shortness of breath, lightheadedness, or increased fatigue. She takes Premarin 0.625 mg daily and states she has never been told about risks for hypercoagulability. He also takes amlodipine, aspirin 81 mg and atorvastatin at baseline. Patient had an peripheral venous ultrasound of her left leg this morning which shows an occlusive deep venous thrombosis seen in the popliteal vein. Patient was given a discount coupon for Eliquis, started patient on 10 mg b.i.d. x7 days and 5 mg b.i.d. thereafter. Patient understands to follow-up with her primary care provider and Dr. Yoon tomorrow. Patient understands the risks of anticoagulants, discussed these at length. She understands to follow-up with her primary care provider and will return emergency department for any new or worsening symptoms. Patient is appropriate and amenable to discharge home. Vital signs are stable on repeat examination is unremarkable. Patient has been informed of results. Patient has been given strict return to ER precautions for any new or worsening symptoms. Patient understands to follow up closely with outpatient providers as instructed. Patient understands plan and agrees to discharge home. All questions and concerns answered at this time. <Dayami Francesca Luther, DO - Last Filed: 04/30/22 08:41> Lab Data Labs: Lab Results 04/26/22 04/26/22 04/26/22 Range/Units 15:30 15:30 15:30 WBC 8.2 (4.5-11.0) X10^3/uL RBC 4.17 (4.0-5.2) X10^6/uL Hgb 12.1 (12.0-16.0) g/dL Hct 35.1 L (36-46) % MCV 84.3 (80-100) fL MCH 29.1 (26-34) PG MCHC 34.5 (30-36) % RDW 13.9 (11.6-14.8) % Plt Count 261 (150-400) X10^3/uL Neut % (Auto) 72.9 (50-75) % Lymph % (Auto) 16.3 L (25-40) % Cla[place]orne % (Auto) 7.0 (3-14) % Eos % (Auto) 3.2 (2-4) % Baso % (Auto) 0.6 (0-2) % Neut # (Auto) 6000 (3447-4899) /uL Lymph # (Auto) 1300 (9481-8715) /uL [place]orne # (Auto) 600 (0-900) /uL Eos # (Auto) 300 (0-450) /uL Baso # (Auto) 0 (0-100) /uL PT 12.0 (10.1-12.7) SECONDS INR 1.0 (0.9-1.3) APTT 29 (26-36) SECONDS Sodium 139 (137-145) mmol/L Potassium 4.1 (3.4-5.1) mmol/L Chloride 103 (98-107) mmol/L Carbon Dioxide 31 (22-32) mmol/L BUN 15 (7-17) mg/dL Creatinine 0.62 (0.52-1.04) mg/dL Estimated GFR > 60 (>60) mL/min BUN/Creatinine Ratio 24.2 H (6-22) Glucose 161 H (80-110) mg/dL Calcium 9.1 (8.4-10.2) mg/dL Total Bilirubin 0.4 (0.2-1.3) mg/dL AST 31 (14-36) IU/L ALT 24 (<35) IU/L Alkaline Phosphatase 75 (38-126) U/L Total Protein 7.4 (6.3-8.2) g/dL Albumin 3.8 (3.5-5.0) g/dL Globulin 3.6 (1.7-4.1) g/dL Albumin/Globulin Ratio 1.1 (1.0-2.8) ECG Data Attestation EKG: I personally reviewed and interpreted this ECG as follows: Prior ECG tracings: available for review Interpretation: Normal sinus rhythm rate 83 AR 130 QRS is 74 and QTC of 430. No acute ST elevation or depression noted. Patient has from 05/06/2016 which appears similar with no ischemic or dynamic changes, S1 Q3 T3 appreciated. Discharge Plan Departure Patient Disposition: Home Clinical Impression: Deep vein thrombosis of lower extremity Qualifiers: Affected thrombotic vein of extremity: popliteal Chronicity: acute Laterality: left Qualified Code(s): I82.432 - Acute embolism and thrombosis of left popliteal vein Total knee replacement status Qualifiers: Laterality: left Qualified Code(s): Z96.652 - Presence of left artificial knee joint Instructions: Deep Vein Thrombosis, How to Use an Elastic Bandage -- Edema, DI for Dependent Edema Activity Restrictions/Additional Instructions: *You have been diagnosed with an occlusive DVT in your left popliteal vein. No other blood clots were visible. Please discontinue your aspirin and start Eliquis. Dosing is 10 mg twice a day for 7 days followed by 5 mg twice daily. Adequate treatment is anticoagulation for 3-6 months or for however long a clot in your lower extremity. Please follow-up with Dr. Clover Yoon tomorrow. Consider discontinuing your Premarin starting now, discuss this with your primary care provider. It can increase your coagulability. Please stay hydrated, elevate your leg frequently, Dr. Sudha Yoon encourages you to ice this frequently as well which may help with the swelling. You can apply topical diclofenac gel but please do not take any ibuprofen, Aleve, or other NSAIDs while taking Eliquis. This may cause bleeding without injury, please follow-up with your primary care provider or come to the emergency department if you have more than a spot of blood. I hope you feel better soon. *What to do: *Please continue to take your regular medications as directed. [ x] New medication prescriptions sent to your pharmacy: [ DOD] [ ] New medication written as a paper prescription [ ] No new medications given *Please follow up with your primary care provider in 2-3 days, call for an appointment. Let them know you were seen in the Emergency Department and that we asked that you be seen for follow-up. We will electronically transmit a record of today's note if your PCP is in our system *If you do not have a primary care provider please contact [phone] to establish care with one of the [facility] primary care providers. *Return to Emergency Department if you should have any new, worsening, or concerning symptoms, such as [fever greater than 101F, chills, worsening pain, persistent vomiting or other bothersome symptoms]. Prescriptions: New Eliquis 5 mg tablet 5 mg PO BID Qty: 90 0RF Rx Instructions: 10 mg 2 times daily for 7 days, then take 5 mg twice daily thereafter. hydrocodone-acetaminophen 5-325 mg tablet 1 tab PO BID PRN (Reason: pain) Qty: 14 0RF ondansetron 4 mg tablet,disintegrating 4 mg PO Q8H Qty: 14 0RF No Action atorvastatin 20 mg Tablet 20 mg PO DAILY amlodipine 5 mg Tablet 5 mg PO DAILY Premarin 0.625 mg Tablet 0.625 mg PO DAILY Rx Instructions: cyclically acetaminophen 325 mg Tablet 650 mg PO Q6HR Qty: 1 0RF aspirin 81 mg Tablet,Delayed Release (Dr/Ec) 81 mg PO BID Qty: 1 0RF ibuprofen 400 mg Tablet 400 mg PO Q4HR Qty: 1 0RF Rx Instructions: Do not fill - for d/c instruction only ondansetron 4 mg Tablet,Disintegrating 4 mg PO Q4HR PRN (Reason: Nausea And Vomiting) Qty: 20 0RF tramadol 50 mg tablet 50 mg PO Q4H PRN (Reason: pain (scale score 7-10)) Qty: 60 0RF Referrals: Christa Valverde, [Primary Care Provider] - Sudha Yoon MD [Physician] - Visit Report Forms: Patient Portal/API <Dayami Luther DO - Last Filed: 04/30/22 08:41> Cosign ED Attending Hemaature Attestation: I was immediately available in the department for consultation. Documentation has been reviewed. Case was discussed and patient was seen independently evaluated by myself. Review with HPI and examination findings. Patient has significant swelling of the left lower extremity, there is quite a bit of swelling, pulses are not easily palpable but are easily dopplerable in the room, patient has pain but not out of proportion. Patient does not have changes consistent with carb department syndrome. Suspect she is a combination of significant swelling from her postoperative situation as well as development of occlusive clot in the popliteal fossa noted on ultrasound occlusive clot is not noted throughout the leg. Patient did have risk factors with recent knee surgery and is on Premarin orally as well. Patient had been on aspirin daily. Was discussed to stop this initiate daily anticoagulant with right strict return precautions. Patient denies any chest pain or shortness of breath, no vital signs that would suggest patient has pulmonary emboli but return precautions were discussed for this as well. All questions answered.
[2022-04-26 15:42] LABS: Add Manual Diff / Slide Review NO; Basophils Absolute Auto 0 /uL (0-100); Basophils Percent Auto 0.6 % (0-2); Eosinophils Absolute Auto 300 /uL (0-450); Eosinophils Percent Auto 3.2 % (2-4); Hematocrit 35.1 % (36-46); Hemoglobin 12.1 g/dL (12.0-16.0); Lymphocytes Absolute Auto 1300 /uL (1100-4500); Lymphocytes Percent Auto 16.3 % (25-40); Mean Corpuscular HGB Conc 34.5 % (30-36); Mean Corpuscular Hemoglobin 29.1 PG (26-34); Mean Corpuscular Volume 84.3 fL (80-100); Monocytes Absolute Auto 600 /uL (0-900); Neutrophils Absolute Auto 6000 /uL (1500-7000); Neutrophils Percent Auto 72.9 % (50-75); Platelet Count 261 X10^3/uL (150-400); Red Blood Cell Count 4.17 X10^6/uL (4.0-5.2); Red Cell Distribution Width 13.9 % (11.6-14.8); White Blood Cell Count 8.2 X10^3/uL (4.5-11.0)
[2022-04-26 15:52] LABS: PTT Partial Thromboplastin Tim 29 SECONDS (26-36)
[2022-04-26] MEDS: HYDROCODONE/ACET 5/325 TABLET 1 TAB PO (15:52)
[2022-04-26] MEDS: ONDANSETRON 4 MG ODT SL (15:52)
[2022-04-26] MEDS: KETOROLAC 30 MG/ML VIAL 15 MG IM (15:53)
[2022-04-26 15:57] LABS: Alanine Aminotransferase 24 IU/L (<35); Albumin 3.8 g/dL (3.5-5.0); Albumin Globulin Ratio 1.1 (1.0-2.8); Alkaline Phosphatase 75 U/L (38-126); Aspartate Aminotransferase 31 IU/L (14-36); BUN Creatinine Ratio 24.2 (6-22); Bilirubin Total 0.4 mg/dL (0.2-1.3); Blood Urea Nitrogen 15 mg/dL (7-17); Calcium 9.1 mg/dL (8.4-10.2); Carbon Dioxide 31 mmol/L (22-32); Chloride 103 mmol/L (98-107); Estimated Glomerular Filt Rate > 60 mL/min (>60); Globulin 3.6 g/dL (1.7-4.1); Glucose 161 mg/dL (80-110); HEMOLYSIS < 15 (0-50); Potassium 4.1 mmol/L (3.4-5.1); Sodium 139 mmol/L (137-145); Total Protein 7.4 g/dL (6.3-8.2)
[2022-04-26 16:24] VITALS: PULSE 77; O2SAT 98
[2022-04-26] MEDS: APIXABAN 5 MG TABLET 10 MG PO (16:44)
[2022-04-26] MEDS: HYDROCODONE/ACET 5/325 PREPACK 1 BOTTLE MISC (16:45)
[2022-04-26] MEDS: ONDANSETRON 4 MG ODT PREPACK 1 BOTTLE MISC (16:45)
--- NOTE | 2022-04-26 18:32 | PC.NURSE ---
Pt post op L knee replacement [address] Yoon. pt having increased pain and swelling and was advised by her PT that the amount of swelling she was showing was abnormal and advised an US. Pt received US outpatient and was + for popliteal occulsive DVT on the L. Pulses found via doppler. Pt medicated for pain and leg elevated. pt started on elquis and given thorough DC instructions and return precautions.
== END 2022-04-26 17:10 | disposition home or self-care (01) ==
PROVIDERS: Emergency Provider Nurse Practitioner Critical Care Medicine; PCP Family Medicine
DX: I82.432 Acute embolism and thrombosis of left popliteal vein (principal); Z96.652 Presence of left artificial knee joint; M25.462 Effusion, left knee; R60.0 Localized edema
CPT/HCPCS: 80053; 85025; 85610; 85730; 93971; 96372; 99283; 99284; J1885

== ENCOUNTER → 2023-08-01 09:37 | Outpatient (CLI) | payer MEDICARE, OTHER, SELFPAY ==
[2022-04-19 18:46] VITALS: BMI 28.0
--- NOTE | 2023-08-01 09:43 | DI.RAD.S_ITS ---
Bone Density Report Name: HERNÁN ELLIS Age: 67 Sex: Female Ethnicity: White Date of : 1955 Indication: postmenopausal; screening for osteoporosis; Referring Provider: ABDI MYERS Study: Bone densitometry was performed. Exam Date: August 01, 2023 Accession number: [id number] Bone Density: Region BMD T-score Z-score Classification AP Spine(L1-L4) 1.202 1.4 3.2 Normal Femoral Neck (Left) 0.877 0.3 1.8 Normal Total Hip (Left) 1.003 0.5 1.8 Normal Femoral Neck (Right) 0.896 0.4 2.0 Normal Total Hip (Right) 1.004 0.5 1.8 Normal Total Hip Mean 1.004 0.5 1.8 Normal World Health Organization criteria for BMD impression classify patients as: Normal (T-score at or above -1.0), Osteopenia (T-score between -1.0 and -2.5), or Osteoporosis (T-score at or below -2.5). 10-year Fracture Risk: FRAX not reported because: All T-scores for Spine Total, Hip Total, Femoral Neck at or above -1.0 Impression: The patient has normal bone mass. Discussion: BONE DENSITY IS ABOVE THE MINIMUM DESIRABLE LEVEL AT ALL SKELETAL SITES TESTED. This patient's bone mineral density is above the minimum desirable level (T-score -1.0 or better) at all sites measured. The patient should follow a healthful lifestyle (good nutrition with adequate calcium and vitamin D, and appropriate weight-bearing exercise). Follow-Up: Consider repeating this study in 5 years or sooner if there is some new clinical indication. Reported by: [facility] ONE[facility] OLMOS M.D. on 08/01/2023 10:10:00 AM.
== END ==
PROVIDERS: PCP Family Medicine; Referring Provider Family Medicine; Visit Provider Family Medicine
DX: Z78.0 Asymptomatic menopausal state (principal); Z13.820 Encounter for screening for osteoporosis
CPT/HCPCS: 77080

== ENCOUNTER → 2025-07-18 13:45 | Outpatient (CLI) | payer MEDICARE, OTHER, SELFPAY ==
[2024-09-21 15:32] VITALS: BMI 28.0
--- NOTE | 2025-07-18 13:46 | DI.MG.S_ITS ---
MM screening mammo BI: 07/18/2025. BI-RADS: 1 CLINICAL: 69-year old female for bilateral screening mammogram. Tyrer-Cuzick lifetime risk of 6.9%. No personal or first-degree family history of breast cancer. Current reported family history of breast cancer: paternal aunt's daughter. The patient had prior bilateral breast biopsies. PRIOR EXAMS 06/17/2024, 05/31/2023, 05/27/2021, 04/26/2021. MAMMOGRAPHY TECHNIQUE: 2D and 3D (tomosynthesis) digital mammographic views obtained, with additional images as needed for full coverage. Current study was also evaluated with a Computer Aided Detection (CAD) system. DENSITY B. There are scattered areas of fibroglandular density. MAMMOGRAPHY FINDINGS Bilateral: No suspicious mass, asymmetry, microcalcification, or other abnormality seen. IMPRESSION: * No evidence of malignancy. RECOMMENDATIONS Bilateral * Annual screening mammography. OVERALL ASSESSMENT CATEGORY BI-RADS-1: Negative. The [employer] recommends annual screening mammography beginning at age 40 for women with average risk of breast cancer. ELECTRONICALLY SIGNED: Christa Jones M.D. on 07/21/2025 at 09:46:09 AM PT Interpreting Station ID: [id number]
== END ==
LOC: MAMMO 13:46
PROVIDERS: PCP Family Medicine; Referring Provider Family Medicine; Visit Provider Family Medicine
DX: Z12.31 Encounter for screening mammogram for malignant neoplasm of breast (principal); Z80.3 Family history of malignant neoplasm of breast
CPT/HCPCS: 77063; 77067